=== PATIENT | male | born 1970 | race Hispanic/Latino ===

== ENCOUNTER 2017-01-22 02:01 | Emergency (ER) | payer BC ==
--- NOTE | 2017-01-22 08:04 | Emergency Department Report ---
Eye Injury/Foreign Body - HPI Duration: 1 Day Eye Location: Right Severity: Mild Tetanus Status: Up to Date Eye Symptoms: Eye Pain: No, Blurred Vision: No, Eye Redness: Yes, Grinding/ Hammering Metal: No, Used Eye Protection: No, Contact Lens Use: No, Recalls Injury: No, Photophobia: No Other History: Patient is a 46-year-old healthy male with no prior medical history, states he was at work yesterday around 1 PM when he noticed a redness in his right eye. Patient states he wasn't doing anything when he noticed it. Patient denies any trauma, recent eye injury, contact lens use, he denies eye pain, eye itchiness or loss of vision ED Review of Systems ROS: Stated complaint: EYE PAIN Other details as noted in HPI Constitutional: denies: chills, fever Eyes: denies: eye pain, eye discharge, vision change ENT: denies: ear pain, throat pain Respiratory: denies: cough, shortness of breath, wheezing Cardiovascular: denies: chest pain, palpitations Endocrine: no symptoms reported Gastrointestinal: denies: abdominal pain, nausea, diarrhea Genitourinary: denies: urgency, dysuria Musculoskeletal: denies: back pain, joint swelling, arthralgia Skin: denies: rash, lesions Neurological: denies: headache, weakness, paresthesias Psychiatric: denies: anxiety, depression Hematological/Lymphatic: denies: easy bleeding, easy bruising ED Past Medical Hx - Past Medical History Previous Medical History?: No Hx Diabetes: No - Surgical History Additional Surgical History: testicle surgery(child)- - Social History Smoking Status: Never Smoker Substance Use Type: None - Medications Home Medications: Home Medications Medication Instructions Recorded Confirmed Last Taken Type Tetrahydrz/Dext 70/Peg 400/Pvp 1 drop OP BID #15 ml 01/22/17 Unknown Rx [Eye Drops] Eye Injury Exam - Exam General: Vital signs noted. No distress. Alert and acting appropriately. GENERAL: Alert and oriented x3, no apparent distress, Normal Gait, atraumatic. HEAD: Head is normocephalic and a-traumatic. EYES: Extra ocular muscles are intact. Pupils are equal, round, and reactive to light and accommodation. Sclerae are clear and erythematous bilaterally. Right eye subconjunctival hematoma palpable 5 cm to the right of the pupil, mild consistency. Nontender to palpation of the eyes bilaterally, no tearing, itching. Vision is intact HEART: S1, S2 present, regular rate and rhythm without murmur, no rubs, no gallops. Non tender to palpation ED Course Vital Signs 01/22/17 02:25 Temperature 98.3 F Pulse Rate 80 Respiratory 18 Rate Blood Pressure 132/89 O2 Sat by Pulse 97 Oximetry ED Medical Decision Making - Medical Decision Making 46-year-old male presents with right symptoms conjunctival hematoma ED course: Patient had an uneventful ED stay Discussed with patient that the hematoma will resolve spontaneously. Discussed patient not to rub his eyes vigorously Vital signs are normal patient is in no acute distress easily oriented 3 Critical care attestation.: If time is entered above; I have spent that time in minutes in the direct care of this critically ill patient, excluding procedure time. ED Disposition Clinical Impression: Subconjunctival hemorrhage, non-traumatic Qualifiers: Laterality: right Qualified Code(s): H11.31 - Conjunctival hemorrhage, right eye Disposition: - TO HOME OR SELFCARE Is pt being admited?: No Does the pt Need Aspirin: No Condition: Stable Instructions: Subconjunctival Hemorrhage (ED) Prescriptions: Tetrahydrz/Dext 70/Peg 400/Pvp [Eye Drops] 1 drop OP BID #15 ml Referrals: PRIMARY CAREMD [Primary Care Provider] - 3-5 Days KVNG JASMINE MD [Staff Physician] - 3-5 Days Forms: Work/School Release Form(ED) Time of Disposition: 08:07
[2017-01-22 08:21] VITALS: BP 140/90
== END 2017-01-22 08:20 | disposition home or self-care (01) ==
LOC: ED 02:01
DX: H11.31 Conjunctival hemorrhage, right eye (principal)
CPT/HCPCS: 99282

== ENCOUNTER 2020-08-29 19:01 | Inpatient (IN) | payer BC ==
--- NOTE | 2020-08-29 21:06 | Emergency Department Report ---
ED General Adult HPI - General Chief complaint: Medical Clearance Stated complaint: My blood pressure was low and I had a fever PUI?: Yes Time Seen by Provider: 08/29/20 21:04 Source: patient, RN notes reviewed Mode of arrival: Ambulatory Limitations: No Limitations - History of Present Illness Initial comments: The patient was evaluated in the emergency department for symptoms described in the history of present illness. He/she was evaluated in the context of the global COVID-19 pandemic, which necessitated consideration that the patient might be at risk for infection with the virus that causes COVID-19. Institutional protocols and algorithms that pertain to the evaluation of patients at risk for COVID-19 are in a state of rapid change based on information released by regulatory bodies including the CDC and federal and state organizations. These policies and algorithms were followed during the patient's care in the emergency department. Please note that these policies, procedures and recommendations changed on a rapid basis. During entire history and physical examination, I had a complete personal protective equipment. The patient is a 50-year-old gentleman. He is not known to myself previously. He does not have a local primary care doctor. He occasionally presents to local urgent care centers for outpatient medical treatment. He reports a history of hypertension, and takes a blood pressure medication, but not cannot recall the name of his blood pressure medication. The patient presents to the ER today with a primary complaint of "my blood pressure was low", and he reportedly had a fever at work, 100 degrees, 101 degrees, and was "sent here to get checked for Covid." The patient reports that he has at home blood pressure machine, he typically checks his values, and 1 of these values today was 99/88 mmHg. It was an isolated reading, additional readings were in the 120s, 117 systolic. The patient denies headache, neck pain, abdominal pain, hematemesis, bright red blood per rectum. He reports intermittent substernal burning feeling, after eating pizza, which has been happening intermittently over the past few weeks. He denies vomiting, diaphoresis, shortness of breath, and his burning feeling did not radiate to the back, arms or neck. The patient denies DVT and pulmonary embolism risk factors. The patient did not know he had a fever today, and he denies all Covid symptoms, including diarrhea, body aches, loss of taste and smell. He has no interest in getting a COVID-19 vaccination. He does reports family history of ischemic heart disease, including his brother, who of a myocardial infarction. He does not use recreational drugs, but occasionally consume/smoke cigarettes. He has chronic lower extremity swelling, which is basically at baseline, and he reports negative outpatient DVT studies. He also endorses chronic arthritic pain. -: This morning Location: chest (Epigastric chest pain), lower extremity (Right lower extremity arthritic pain) Radiation: non-radiation Quality: burning Consistency: intermittent Improves with: none Worsens with: none - Related Data Home Medications Medication Instructions Recorded Confirmed Last Taken Irbesartan [Avapro] 75 mg PO QDAY 08/29/20 08/29/20 08/29/20 10:00 Allergies Allergy/AdvReac Type Severity Reaction Status Date / Time lisinopril Allergy Unknown Verified 08/29/20 20:43 ED Review of Systems ROS: Stated complaint: LBP Other details as noted in HPI Constitutional: fever, other (Denies loss of taste and smell). denies: diaphoresis, malaise, weakness Eyes: denies: eye discharge Respiratory: denies: cough, shortness of breath Cardiovascular: other (Chest burning) Gastrointestinal: abdominal pain (Epigastric burning). denies: nausea, hematemesis, melena, hematochezia Genitourinary: denies: dysuria Musculoskeletal: arthralgia, myalgia Neurological: denies: headache Hematological/Lymphatic: denies: easy bleeding ED Past Medical Hx - Past Medical History Previous Medical History?: Yes Hx Hypertension: Yes Hx Diabetes: No Additional medical history: varicose veins - Surgical History Additional Surgical History: testicle surgery(child)- - Social History Smoking Status: Never Smoker Substance Use Type: None - Medications Home Medications: Home Medications Medication Instructions Recorded Confirmed Last Taken Type Irbesartan [Avapro] 75 mg PO QDAY 08/29/20 08/29/20 08/29/20 10:00 History ED Physical Exam - General Limitations: No Limitations General appearance: alert, in no apparent distress - Head Head exam: Present: atraumatic, normocephalic - Eye Eye exam: Present: normal appearance, EOMI. Absent: nystagmus - ENT ENT exam: Present: normal exam, normal orophraynx, mucous membranes moist, normal external ear exam - Neck Neck exam: Present: normal inspection, full ROM. Absent: tenderness, meningismus - Respiratory Respiratory exam: Present: other (Pulmonary auscultation not performed secondary to lack of disposable stethoscope). Absent: respiratory distress, stridor - Cardiovascular Cardiovascular Exam: Present: other (Cardiac auscultation not performed secondary to lack of disposable stethoscope) - GI/Abdominal GI/Abdominal exam: Present: soft. Absent: distended, tenderness, guarding, rebound, rigid, pulsatile mass - Rectal Rectal exam: Present: deferred - Extremities Exam Extremities exam: Present: normal inspection, full ROM, pedal edema (1+ edema bilateral lower extremities.), other (2+ pulses noted in the bilateral upper and lower extremities. There is no palpable cord. negative Homans sign. Muscular compartments are soft. The pelvis is stable.). Absent: calf tenderness - Back Exam Back exam: Present: normal inspection. Absent: tenderness, CVA tenderness (R), CVA tenderness (L), paraspinal tenderness, vertebral tenderness - Neurological Exam Neurological exam: Present: alert, other (No facial droop. Tongue midline. Extraocular movements intact bilaterally. Facial sensation intact to light touch in V1, V2, V3 distribution bilaterally. 5 and a 5 strength in 4 extremities. Sensation intact to light touch in 4 extremities.). Absent: motor sensory deficit - Psychiatric Psychiatric exam: Present: normal affect, normal mood - Skin Skin exam: Present: warm, dry, intact, normal color. Absent: rash ED Course Vital Signs 08/29/20 08/29/20 08/29/20 20:37 21:07 21:10 Temperature 98.1 F 97.9 F Pulse Rate 65 132 H 138 H Respiratory 20 18 17 Rate Blood Pressure 100/75 Blood Pressure 109/83 [Right] O2 Sat by Pulse 98 100 Oximetry O2 Sat by Pulse Oximetry [ Digit-Finger] 08/29/20 08/29/20 08/29/20 21:30 21:47 22:00 Temperature Pulse Rate 129 H 138 H 93 H Respiratory 21 11 L Rate Blood Pressure 127/81 113/80 113/80 Blood Pressure [Right] O2 Sat by Pulse 99 97 Oximetry O2 Sat by Pulse Oximetry [ Digit-Finger] 08/29/20 08/29/20 08/29/20 22:30 22:45 22:53 Temperature Pulse Rate 126 H 125 H Respiratory 16 Rate Blood Pressure 103/73 112/73 Blood Pressure [Right] O2 Sat by Pulse 97 Oximetry O2 Sat by Pulse 99 Oximetry [ Digit-Finger] 08/29/20 23:00 Temperature Pulse Rate 80 Respiratory 12 Rate Blood Pressure 112/73 Blood Pressure [Right] O2 Sat by Pulse 97 Oximetry O2 Sat by Pulse Oximetry [ Digit-Finger] - Reevaluation(s) Reevaluation #1: 08/29/20 22:00 Differential diagnosis, including but not limited to: COVID-19, pneumonia, urinary tract infection, A. fib with RVR, electrolyte derangement, acute coronary syndrome Assessment and plan: 50-year-old gentleman, found to be in A. fib with RVR, patient as far she knows does not have a history of A. fib with RVR. He has had a fever today, but is otherwise asymptomatic, and denies additional Covid symptomatology, and he is saturating 99% on room air. From a COVID-19 perspective, place patient on isolation, obtain appropriate laboratory studies and biomarkers, x-ray the chest, blood culture and lactic acid. Patient not hypoxic at this time not symptomatic at this time, does not require steroids at this time. Found to be in A. fib with RVR. Start diltiazem IV push x1, reassess. Check appropriate laboratory studies, EKG, chest x-ray, discussed with cardiology on- call, once additional laboratory studies have come back, initiate systemic anticoagulation. Patient denies contraindications to systemic anticoagulation. Patient denies DVT and pulmonary embolism risk factors. Patient also endorsed burning chest discomfort. Treat as needed, obtain cardiac biomarkers. Have discussed this plan of care with the patient, who verbalized understanding, and was amenable to this plan of care. Patient is certainly amenable to admission at this time. 08/29/20 22:02 Reevaluation #2: 08/29/20 22:22 Heart rate in the 90s after diltiazem. Patient speaking on cell phone. He is in no acute distress. Reevaluation #3: 08/29/20 22:52 Heart rate 80s to 124. Additional diltiazem ordered. Evaluated laboratory studies and radiology studies. Lovenox ordered. Extensive discussion held with patient regarding studies. Patient initially ambivalent about being admitted, as he has pet obligations at home. However, after exten sive discussion, he tells me that he is now okay with being admitted. Hospital physician, Dr. Jesus Trevino to admit Reevaluation #4: 08/29/20 23:12 Repeat EKG shows A. fib, 75 bpm, QTC prolonged, left ventricular hypertrophy, not a STEMI. - Consultations Consultation #1: 08/29/20 22:03 I discussed the patient's history, physical, pertinent findings with cardiology on-call, Dr. Godoy, who agrees with plan of care, and his group will follow closely in consultation. - Pulse Oximetry Interpretation Digit-Finger Initial Pulse Oximetry Readin O2 Sat by Pulse Oximetry: 99 Actions Taken: none ED Medical Decision Making - Lab Data Result diagrams: 08/29/20 21:49 08/29/20 21:49 Vital Signs 08/29/20 08/29/20 08/29/20 20:37 21:10 21:47 Temperature 98.1 F 97.9 F Pulse Rate 65 138 H 138 H Respiratory 20 17 Rate Blood Pressure 100/75 113/80 Blood Pressure 109/83 [Right] O2 Sat by Pulse 98 100 Oximetry O2 Sat by Pulse Oximetry [ Digit-Finger] 08/29/20 22:00 Temperature Pulse Rate Respiratory Rate Blood Pressure Blood Pressure [Right] O2 Sat by Pulse Oximetry O2 Sat by Pulse 99 Oximetry [ Digit-Finger] Lab Results 08/29/20 08/29/20 08/29/20 Range/Units 21:49 21:49 21:49 WBC 8.5 (4.5-11.0) K/mm3 RBC 4.59 (3.65-5.03) M/mm3 Hgb 14.4 (11.8-15.2) gm/dl Hct 41.5 (35.5-45.6) % MCV 90 (84-94) fl MCH 31 (28-32) pg MCHC 35 H (32-34) % RDW 12.9 L (13.2-15.2) % Plt Count 306 (140-440) K/mm3 Lymph % (Auto) 19.0 (13.4-35.0) % Gem % (Auto) 9.2 H (0.0-7.3) % Eos % (Auto) 2.3 (0.0-4.3) % Baso % (Auto) 1.5 (0.0-1.8) % Lymph # (Auto) 1.6 (1.2-5.4) K/mm3 Gem # (Auto) 0.8 (0.0-0.8) K/mm3 Eos # (Auto) 0.2 (0.0-0.4) K/mm3 Baso # (Auto) 0.1 (0.0-0.1) K/mm3 Seg Neutrophils % 68.0 (40.0-70.0) % Seg Neutrophils # 5.8 (1.8-7.7) K/mm3 PT 12.5 (12.2-14.9) Sec. INR 0.95 (0.87-1.13) APTT 27.1 (24.2-36.6) Sec. D-Dimer 191.60 (0-234) ng/mlDDU Sodium (137-145) mmol/L Potassium (3.6-5.0) mmol/L Chloride (98-107) mmol/L Carbon Dioxide (22-30) mmol/L Anion Gap mmol/L BUN (9-20) mg/dL Creatinine (0.8-1.3) mg/dL Estimated GFR ml/min BUN/Creatinine Ratio % Glucose (75-100) mg/dL Lactic Acid 1.90 (0.7-2.0) mmol/L Calcium (8.4-10.2) mg/dL Magnesium (1.7-2.3) mg/dL Ferritin (30.0-300.0) ng/mL Total Bilirubin (0.1-1.2) mg/dL AST (5-40) units/L ALT (7-56) units/L Alkaline Phosphatase (35-129) units/L Lactate Dehydrogenase (91-180) units/L Troponin T (0.00-0.029) ng/mL C-Reactive Protein (0.00-1.30) mg/dL NT-Pro-B Natriuret Pep (0-900) pg/mL Total Protein (6.3-8.2) g/dL Albumin (3.9-5) g/dL Albumin/Globulin Ratio % TSH (0.270-4.200) mlU/mL 08/29/20 08/29/20 08/29/20 Range/Units 21:49 21:49 21:49 WBC (4.5-11.0) K/mm3 RBC (3.65-5.03) M/mm3 Hgb (11.8-15.2) gm/dl Hct (35.5-45.6) % MCV (84-94) fl MCH (28-32) pg MCHC (32-34) % RDW (13.2-15.2) % Plt Count (140-440) K/mm3 Lymph % (Auto) (13.4-35.0) % Gem % (Auto) (0.0-7.3) % Eos % (Auto) (0.0-4.3) % Baso % (Auto) (0.0-1.8) % Lymph # (Auto) (1.2-5.4) K/mm3 Gem # (Auto) (0.0-0.8) K/mm3 Eos # (Auto) (0.0-0.4) K/mm3 Baso # (Auto) (0.0-0.1) K/mm3 Seg Neutrophils % (40.0-70.0) % Seg Neutrophils # (1.8-7.7) K/mm3 PT (12.2-14.9) Sec. INR (0.87-1.13) APTT (24.2-36.6) Sec. D-Dimer (0-234) ng/mlDDU Sodium 136 L (137-145) mmol/L Potassium 3.9 (3.6-5.0) mmol/L Chloride 103.1 (98-107) mmol/L Carbon Dioxide 22 (22-30) mmol/L Anion Gap 15 mmol/L BUN 8 L (9-20) mg/dL Creatinine 0.7 L (0.8-1.3) mg/dL Estimated GFR > 60 ml/min BUN/Creatinine Ratio 11 % Glucose 111 H (75-100) mg/dL Lactic Acid (0.7-2.0) mmol/L Calcium 8.7 (8.4-10.2) mg/dL Magnesium 2.10 (1.7-2.3) mg/dL Ferritin 142.4 (30.0-300.0) ng/mL Total Bilirubin 0.40 (0.1-1.2) mg/dL AST 15 (5-40) units/L ALT 19 (7-56) units/L Alkaline Phosphatase 84 (35-129) units/L Lactate Dehydrogenase 162 (91-180) units/L Troponin T < 0.010 (0.00-0.029) ng/mL C-Reactive Protein 0.20 (0.00-1.30) mg/dL NT-Pro-B Natriuret Pep (0-900) pg/mL Total Protein 7.2 (6.3-8.2) g/dL Albumin 3.9 (3.9-5) g/dL Albumin/Globulin Ratio 1.2 % TSH 0.774 (0.270-4.200) mlU/mL 08/29/20 Range/Units 21:49 WBC (4.5-11.0) K/mm3 RBC (3.65-5.03) M/mm3 Hgb (11.8-15.2) gm/dl Hct (35.5-45.6) % MCV (84-94) fl MCH (28-32) pg MCHC (32-34) % RDW (13.2-15.2) % Plt Count (140-440) K/mm3 Lymph % (Auto) (13.4-35.0) % Gem % (Auto) (0.0-7.3) % Eos % (Auto) (0.0-4.3) % Baso % (Auto) (0.0-1.8) % Lymph # (Auto) (1.2-5.4) K/mm3 Gem # (Auto) (0.0-0.8) K/mm3 Eos # (Auto) (0.0-0.4) K/mm3 Baso # (Auto) (0.0-0.1) K/mm3 Seg Neutrophils % (40.0-70.0) % Seg Neutrophils # (1.8-7.7) K/mm3 PT (12.2-14.9) Sec. INR (0.87-1.13) APTT (24.2-36.6) Sec. D-Dimer (0-234) ng/mlDDU Sodium (137-145) mmol/L Potassium (3.6-5.0) mmol/L Chloride (98-107) mmol/L Carbon Dioxide (22-30) mmol/L Anion Gap mmol/L BUN (9-20) mg/dL Creatinine (0.8-1.3) mg/dL Estimated GFR ml/min BUN/Creatinine Ratio % Glucose (75-100) mg/dL Lactic Acid (0.7-2.0) mmol/L Calcium (8.4-10.2) mg/dL Magnesium (1.7-2.3) mg/dL Ferritin (30.0-300.0) ng/mL Total Bilirubin (0.1-1.2) mg/dL AST (5-40) units/L ALT (7-56) units/L Alkaline Phosphatase (35-129) units/L Lactate Dehydrogenase (91-180) units/L Troponin T (0.00-0.029) ng/mL C-Reactive Protein (0.00-1.30) mg/dL NT-Pro-B Natriuret Pep 434.7 (0-900) pg/mL Total Protein (6.3-8.2) g/dL Albumin (3.9-5) g/dL Albumin/Globulin Ratio % TSH (0.270-4.200) mlU/mL - EKG Data -: EKG Interpreted by Me Rate: tachycardia - EKG Data 08/29/20 22:02 A. fib, 130 bpm. Normal axis, QTC 461 ms. Left ventricular hypertrophy. Ab normal EKG. Not a STEMI. No prior for comparison. - Radiology Data Radiology results: pending, image reviewed interpreted by me: 1 view x-ray of the chest, interpreted by myself, clear lungs, no pneumothorax, no infiltrate, bony anatomy within normal limits. [facility] [address] [place] [address] XRay Report Signed Patient: GENESIS BLACKMON MR#: [id number] : [birth year] Acct:[id number] Age/Sex: 50 / M ADM Date: 08/29/20 Loc: ED Attending Dr: Ordering Physician: GENESIS OLIVA MD Date of Service: 08/29/20 Procedure(s): XR chest 1V ap Accession Number(s): [id number] cc: GENESIS OLIVA MD Fluoro Time In Minutes: CHEST 1 VIEW 08/29/2020 9:43 PM INDICATION / CLINICAL INFORMATION: Dysrhythmia. Shortness of breath. COMPARISON: None available. FINDINGS: SUPPORT DEVICES: None. HEART / MEDIASTINUM: The heart size and pulmonary vasculature are normal. LUNGS / PLEURA: No significant pulmonary or pleural abnormality. No pneumothorax. ADDITIONAL FINDINGS: No significant additional findings. IMPRESSION: No acute findings. Signer Name: Rudy Mayes MD Signed: 08/29/2020 10:43 PM Workstation Name: [id number] Transcribed By: RT Dictated By: Rudy Mayes MD Electronically Authenticated By: Rudy Mayes MD Signed Date/Time: 08/29/202242 DD/ 42 Critical Care Time: Yes Critical care time in (mins) excluding proc time.: 65 Critical care attestation.: If time is entered above; I have spent that time in minutes in the direct care of this critically ill patient, excluding procedure time. ED Disposition Clinical Impression: Suspected 2019 novel coronavirus infection, Atrial fibrillation with rapid ventricular response Disposition: OP ADMIT IP TO THIS HOSP Is pt being admited?: Yes Does the pt Need Aspirin: No Condition: Serious
[2020-08-29] MEDS ORDERED: ASPIRIN 81 MG TAB CHEW PO ONE (21:40)
[2020-08-29] MEDS ORDERED: dilTIAZem 25 MG/5 ML INJ IV ONE ×2 (21:40→22:40)
[2020-08-29] MEDS ORDERED: NITROGLYCERIN 0.4 MG TAB SUBL SL PRN (21:42)
[2020-08-29] MEDS ORDERED: ACETAMINOPHEN 325 MG TAB PO STA (21:59)
[2020-08-29 22:07] LABS: Basophils # (Auto) 0.1 K/mm3 (0.0-0.1); Basophils % (Auto) 1.5 % (0.0-1.8); Eosinophils # (Auto) 0.2 K/mm3 (0.0-0.4); Eosinophils % (Auto) 2.3 % (0.0-4.3); Hematocrit 41.5 % (35.5-45.6); Hemoglobin 14.4 gm/dl (11.8-15.2); Lymphocytes # (Auto) 1.6 K/mm3 (1.2-5.4); Mean Corpuscular HGB Conc 35 % (32-34); Mean Corpuscular Volume 90 fl (84-94); Monocytes # (Auto) 0.8 K/mm3 (0.0-0.8); Monocytes % (Auto) 9.2 % (0.0-7.3); Platelet Count 306 K/mm3 (140-440); Red Blood Count 4.59 M/mm3 (3.65-5.03); Red Cell Distribution Width 12.9 % (13.2-15.2)
[2020-08-29] MEDS ORDERED: dilTIAZem 30 MG TAB PO ONE (22:10)
[2020-08-29 22:18] LABS: INR 0.95 (0.87-1.13)
[2020-08-29 22:19] LABS: Partial Thromboplastin Time 27.1 Sec. (24.2-36.6)
[2020-08-29 22:38] LABS: Alanine Aminotransferase 19 units/L (7-56); Albumin 3.9 g/dL (3.9-5); Blood Urea Nitrogen 8 mg/dL (9-20); Calcium 8.7 mg/dL (8.4-10.2); Hemolysis Index 20
[2020-08-29] MEDS ORDERED: ENOXAPARIN 100 MG/1 ML INJ SUB-Q STA (22:41)
[2020-08-29 22:42] LABS: BUN/Creatinine Ratio 11
--- NOTE | 2020-08-29 22:48 | XRay Report ---
CHEST 1 VIEW 08/29/2020 9:43 PM INDICATION / CLINICAL INFORMATION: Dysrhythmia. Shortness of breath. COMPARISON: None available. FINDINGS: SUPPORT DEVICES: None. HEART / MEDIASTINUM: The heart size and pulmonary vasculature are normal. LUNGS / PLEURA: No significant pulmonary or pleural abnormality. No pneumothorax. ADDITIONAL FINDINGS: No significant additional findings. IMPRESSION: No acute findings. Signer Name: Rudy Mayes MD Signed: 08/29/2020 10:43 PM Workstation Name: [id number]
--- NOTE | 2020-08-29 23:01 | History and Physical Report ---
History of Present Illness Date of examination: 08/29/20 Date of admission: 08/29/2020 Chief complaint: Fever Elevated Blood Pressure History of present illness: 50-year-old male with significant past medical history of hypertension presents to the emergency room today complaining of fever and abnormally low blood pressure readings. He states he was at work today and had a fever of about 100 to 101 F and was sent to the emergency room to be tested for Covid. Patient denies any cough or shortness of breath, no chest pain, no nausea vomiting, no abdominal pain, no headache or dizziness, no nausea vomiting, no abdominal pain. Patient denies any sick contacts and no recent travel. Denies any contact with anyone with COVID-19. Upon arrival in the emergency room patient was found to be in atrial fibrillation with RVR. He was given multiple doses of IV Cardizem with some good response initially but later went back into A. fib., with RVR and had to be placed on Cardizem drip. Work-up so far in the emergency room including chest x-ray, TSH has been unrem arkable. Patient has been admitted for A. fib with RVR and also to be tested for COVID- 19. Past History Past Medical History: arthritis, hypertension Past Surgical History: Other (Testicular surgery in Childhood) Social history: no significant social history Family history: no significant family history Medications and Allergies Allergies Allergy/AdvReac Type Severity Reaction Status Date / Time lisinopril Allergy Unknown Verified 08/29/20 20:43 Home Medications Medication Instructions Recorded Confirmed Last Taken Type Irbesartan [Avapro] 75 mg PO QDAY 08/29/20 08/29/20 08/29/20 10:00 History Active Meds: Active Medications Nitroglycerin (Nitroglycerin 0.4 Mg Tab Subl) 0.4 mg SL .Q5MIN PRN PRN Reason: Chest Pain Review of Systems Constitutional: fever, no chills Ears, nose, mouth and throat: no nasal congestion, no sore throat Cardiovascular: palpitations, no chest pain Respiratory: no cough, no shortness of breath Genitourinary Male: no dysuria, no hematuria, no nocturia Musculoskeletal: no neck pain, no low back pain Integumentary: no rash, no pruritis Neurological: no headaches, no confusion Psychiatric: no anxiety, no depression, no confusion Endocrine: no polyphagia, no polydipsia, no polyuria, no nocturia Exam - Constitutional Vitals: Temp Pulse Resp BP Pulse Ox 97.9 F 125 H 16 112/73 99 08/29/20 21:10 08/29/20 22:45 08/29/20 22:30 08/29/20 22:45 08/29/20 22:50 General appearance: Present: no acute distress, well-nourished - EENT Eyes: Present: PERRL, EOM intact. Absent: scleral icterus ENT: hearing intact, clear oral mucosa, dentition normal - Neck Neck: Present: supple, normal ROM - Respiratory Respiratory effort: normal Respiratory: bilateral: CTA - Cardiovascular Rhythm: irregularly irregular Heart Sounds: Present: S1 & S2. Absent: gallop, systolic murmur, diastolic murmur, rub, click - Extremities Extremities: no ischemia, pulses intact, pulses symmetrical, No edema, normal temperature, normal color, Full ROM Peripheral Pulses: within normal limits - Abdominal General gastrointestinal: Present: soft, non-tender, non-distended, normal bowel sounds - Integumentary Integumentary: Present: clear, warm, dry. Absent: rash - Musculoskeletal Musculoskeletal: strength equal bilaterally - Psychiatric Psychiatric: appropriate mood/affect, intact judgment & insight, memory intact, cooperative - Neurologic Neurologic: CNII-XII intact, no focal deficits, moves all extremities HEART Score - HEART Score Troponin: Troponin T < 0.010 ng/mL (0.00-0.029) 08/29/20 21:49 Results - Labs CBC & Chem 7: 08/31/20 05:02 08/31/20 05:02 Labs: Abnormal lab results 08/29/20 08/29/20 Range/Units 21:49 21:49 MCHC 35 H (32-34) % RDW 12.9 L (13.2-15.2) % [place] % (Auto) 9.2 H (0.0-7.3) % Sodium 136 L (137-145) mmol/L BUN 8 L (9-20) mg/dL Creatinine 0.7 L (0.8-1.3) mg/dL Glucose 111 H (75-100) mg/dL Assessment and Plan - Patient Problems (1) Atrial fibrillation with rapid ventricular response Current Visit: Yes Status: Acute Plan to address problem: Patient admitted and initially placed on Cardizem drip and subsequently switched to amiodarone drip. Will titrate according to protocol. Patient will be scheduled for echocardiogram. Consult placed to cardiology for evaluation and recommendation. (2) Suspected 2019 novel coronavirus infection Current Visit: Yes Status: Acute Plan to address problem: Patient placed on isolation precautions. Will await COVID-19 testing. (3) Hypertension Current Visit: Yes Status: Acute Plan to address problem: Blood pressure stable. Will continue to monitor. (4) DVT prophylaxis Current Visit: Yes Status: Acute Plan to address problem: We will place patient on subcutaneous Lovenox. (5) Full code status Current Visit: Yes Status: Acute Plan to address problem: Patient is a full code.
[2020-08-30] MEDS ORDERED: ONDANSETRON 4 MG/2 ML INJ IV PRN (00:05)
[2020-08-30] MEDS ORDERED: MAGNESIUM HYDROXIDE (MOM) ORAL LIQD UDC PO PRN (00:05)
[2020-08-30] MEDS ORDERED: MORPHINE 2 MG/1 ML INJ IV PRN (00:05)
[2020-08-30] MEDS ORDERED: ACETAMINOPHEN 325 MG TAB PO PRN (00:05)
[2020-08-30 00:08] LABS: Amphetamine Screen,Urine PRESUMPTIVE NEGATIVE; Benzodiazepines Screen,Urine PRESUMPTIVE NEGATIVE; Cannabinoid Screen,Urine PRESUMPTIVE NEGATIVE; Cocaine Screen,Urine PRESUMPTIVE NEGATIVE; Methadone Screen,Urine PRESUMPTIVE NEGATIVE; Opiate Screen,Urine PRESUMPTIVE NEGATIVE
[2020-08-30] MEDS ORDERED: dilTIAZem/D5W 100 MG/100 ML BAG IV SCH (02:00)
[2020-08-30] MEDS ORDERED: AMIODARONE 900 MG in DEXTROSE 5% IN WATER 482 ML IV SCH (06:00)
--- NOTE | 2020-08-30 10:04 | Progress Note ---
Assessment and Plan Assessment and plan: Atrial fibrillation with rapid ventricular response. New onset Suspected COVID-19. Hypertension. 08/30. Patient with troponin, TSH and D-dimer within normal limits. Await cardiology consultation. Continue amiodarone drip for now for rate control. Patient will be likely transition to p.o. amiodarone. Follow-up echocardiogram. Follow-up Covid PCR. Patient will be downgraded to IMCU. History Interval history: No new issues overnight Hospitalist Physical - Constitutional Vitals: Temp Pulse Resp BP Pulse Ox 97.9 F 77 21 127/89 98 08/29/20 21:10 08/30/20 09:30 08/30/20 09:30 08/30/20 09:30 08/30/20 09:30 General appearance: Present: no acute distress, well-nourished - EENT Eyes: Present: PERRL, EOM intact ENT: hearing intact, clear oral mucosa, dentition normal - Neck Neck: Present: supple, normal ROM - Respiratory Respiratory effort: normal Respiratory: bilateral: CTA - Cardiovascular Rhythm: regular Heart Sounds: Present: S1 & S2. Absent: gallop, rub - Extremities Extremities: no ischemia, No edema, Full ROM - Abdominal General gastrointestinal: soft, non-tender, non-distended, normal bowel sounds - Integumentary Integumentary: Present: clear, warm, dry - Neurologic Neurologic: CNII-XII intact, moves all extremities HEART Score - HEART Score Troponin: Troponin T < 0.010 ng/mL (0.00-0.029) 08/30/20 05:47 Results - Labs CBC & Chem 7: 08/29/20 21:49 08/29/20 21:49 Labs: Laboratory Last Values WBC 8.5 K/mm3 (4.5-11.0) 08/29/20 21:49 RBC 4.59 M/mm3 (3.65-5.03) 08/29/20 21:49 Hgb 14.4 gm/dl (11.8-15.2) 08/29/20 21:49 Hct 41.5 % (35.5-45.6) 08/29/20 21:49 MCV 90 fl (84-94) 08/29/20 21:49 MCH 31 pg (28-32) 08/29/20 21:49 MCHC 35 % (32-34) H 08/29/20 21:49 RDW 12.9 % (13.2-15.2) L 08/29/20 21:49 Plt Count 306 K/mm3 (140-440) 08/29/20 21:49 Lymph % (Auto) 19.0 % (13.4-35.0) 08/29/20 21:49 [place] % (Auto) 9.2 % (0.0-7.3) H 08/29/20 21:49 Eos % (Auto) 2.3 % (0.0-4.3) 08/29/20 21:49 Baso % (Auto) 1.5 % (0.0-1.8) 08/29/20 21:49 Lymph # (Auto) 1.6 K/mm3 (1.2-5.4) 08/29/20 21:49 [place] # (Auto) 0.8 K/mm3 (0.0-0.8) 08/29/20 21:49 Eos # (Auto) 0.2 K/mm3 (0.0-0.4) 08/29/20 21:49 Baso # (Auto) 0.1 K/mm3 (0.0-0.1) 08/29/20 21:49 Seg Neutrophils % 68.0 % (40.0-70.0) 08/29/20 21:49 Seg Neutrophils # 5.8 K/mm3 (1.8-7.7) 08/29/20 21:49 PT 12.5 Sec. (12.2-14.9) 08/29/20 21:49 INR 0.95 (0.87-1.13) 08/29/20 21:49 APTT 27.1 Sec. (24.2-36.6) 08/29/20 21:49 D-Dimer 191.60 ng/mlDDU (0-234) 08/29/20 21:49 Sodium 136 mmol/L (137-145) L 08/29/20 21:49 Potassium 3.9 mmol/L (3.6-5.0) 08/29/20 21:49 Chloride 103.1 mmol/L (98-107) 08/29/20 21:49 Carbon Dioxide 22 mmol/L (22-30) 08/29/20 21:49 Anion Gap 15 mmol/L 08/29/20 21:49 BUN 8 mg/dL (9-20) L 08/29/20 21:49 Creatinine 0.7 mg/dL (0.8-1.3) L 08/29/20 21:49 Estimated GFR > 60 ml/min 08/29/20 21:49 BUN/Creatinine Ratio 11 % 08/29/20 21:49 Glucose 111 mg/dL (75-100) H 08/29/20 21:49 Lactic Acid 1.90 mmol/L (0.7-2.0) 08/29/20 21:49 Calcium 8.7 mg/dL (8.4-10.2) 08/29/20 21:49 Phosphorus 2.90 mg/dL (2.5-4.5) 08/30/20 08:40 Magnesium 2.10 mg/dL (1.7-2.3) 08/29/20 21:49 Ferritin 142.4 ng/mL (30.0-300.0) 08/29/20 21:49 Total Bilirubin 0.40 mg/dL (0.1-1.2) 08/29/20 21:49 AST 15 units/L (5-40) 08/29/20 21:49 ALT 19 units/L (7-56) 08/29/20 21:49 Alkaline Phosphatase 84 units/L (35-129) 08/29/20 21:49 Lactate Dehydrogenase 162 units/L (91-180) 08/29/20 21:49 Troponin T < 0.010 ng/mL (0.00-0.029) 08/30/20 05:47 C-Reactive Protein 0.20 mg/dL (0.00-1.30) 08/29/20 21:49 NT-Pro-B Natriuret Pep 434.7 pg/mL (0-900) 08/29/20 21:49 Total Protein 7.2 g/dL (6.3-8.2) 08/29/20 21:49 Albumin 3.9 g/dL (3.9-5) 08/29/20 21:49 Albumin/Globulin Ratio 1.2 % 08/29/20 21:49 TSH 0.774 mlU/mL (0.270-4.200) 08/29/20 21:49 Urine Opiates Screen Presumptive negative 08/29/20 23:38 Urine Methadone Screen Presumptive negative 08/29/20 23:38 Ur Barbiturates Screen Presumptive negative 08/29/20 23:38 Ur Phencyclidine Scrn Presumptive negative 08/29/20 23:38 Ur Amphetamines Screen Presumptive negative 08/29/20 23:38 U Benzodiazepines Scrn Presumptive negative 08/29/20 23:38 Urine Cocaine Screen Presumptive negative 08/29/20 23:38 U Marijuana (THC) Screen Presumptive negative 08/29/20 23:38 Drugs of Abuse Note Disclamer 08/29/20 23:38 Microbiology: Microbiology 08/29/20 21:59 Peripheral/Venous Blood Culture - Preliminary Culture in Progress 08/29/20 21:49 Peripheral/Venous Blood Culture - Preliminary Culture in Progress Active Medications - Current Medications Current Medications: Generic Name Dose Route Start Last Admin Trade Name Freq PRN Reason Stop Dose Admin Acetaminophen 650 mg 08/30/20 00:05 Acetaminophen 325 Mg Tab PO Q4H PRN Pain MILD(1-3)/Fever >100.5/RUSSELL Amiodarone HCl 900 mg/ 500 mls @ 33.333 mls/hr 08/30/20 06:00 08/30/20 05:50 Dextrose IV 1 mg/min DIRECT PAPA 33.333 mls/hr Administration Protocol 1 MG/MIN Magnesium Hydroxide 30 ml 08/30/20 00:05 Magnesium Hydroxide (Mom) Oral Liqd Udc PO Q4H PRN Constipation Morphine Sulfate 2 mg 08/30/20 00:05 Morphine 2 Mg/1 Ml Inj IV Q4H PRN Pain, Moderate (4-6) Nitroglycerin 0.4 mg 08/29/20 21:42 Nitroglycerin 0.4 Mg Tab Subl SL .Q5MIN PRN Chest Pain Ondansetron HCl 4 mg 08/30/20 00:05 Ondansetron 4 Mg/2 Ml Inj IV Q8H PRN Nausea And Vomiting Sodium Chloride 10 ml 08/30/20 10:00 Sodium Chloride 0.9% 10 Ml Flush Syringe IV BID PAPA Sodium Chloride 10 ml 08/30/20 00:05 Sodium Chloride 0.9% 10 Ml Flush Syringe IV PRN PRN LINE FLUSH
--- NOTE | 2020-08-30 12:33 | Consultation ---
History of Present Illness Consult date: 08/30/20 Requesting physician: YESI TAYLOR Reason for consult: other (A-Fib with RVR) History of present illness: PULMONARY/CCM CONSULT NOTE (Full dictation # [id number]) Please see dictated notes for full details Past History Past Medical History: arthritis, hypertension Past Surgical History: Other (Testicular surgery in Childhood) Social history: no significant social history Family history: no significant family history Medications and Allergies Allergies Allergy/AdvReac Type Severity Reaction Status Date / Time lisinopril Allergy Unknown Verified 08/29/20 20:43 Home Medications Medication Instructions Recorded Confirmed Last Taken Type Irbesartan [Avapro] 75 mg PO QDAY 08/29/20 08/29/20 08/29/20 10:00 History Active Meds: Active Medications Acetaminophen (Acetaminophen 325 Mg Tab) 650 mg PO Q4H PRN PRN Reason: Pain MILD(1-3)/Fever >100.5/RUSSELL Amiodarone HCl 900 mg/ (Dextrose) 500 mls @ 33.333 mls/hr IV DIRECT PAPA; Protocol Last Infusion: 08/30/20 11:56 Dose: 0.5 mg/min, 16.667 mls/hr Documented by: Magnesium Hydroxide (Magnesium Hydroxide (Mom) Oral Liqd Udc) 30 ml PO Q4H PRN PRN Reason: Constipation Morphine Sulfate (Morphine 2 Mg/1 Ml Inj) 2 mg IV Q4H PRN PRN Reason: Pain, Moderate (4-6) Nitroglycerin (Nitroglycerin 0.4 Mg Tab Subl) 0.4 mg SL .Q5MIN PRN PRN Reason: Chest Pain Ondansetron HCl (Ondansetron 4 Mg/2 Ml Inj) 4 mg IV Q8H PRN PRN Reason: Nausea And Vomiting Sodium Chloride (Sodium Chloride 0.9% 10 Ml Flush Syringe) 10 ml IV BID PAPA Last Admin: 08/30/20 12:04 Dose: 10 ml Documented by: Sodium Chloride (Sodium Chloride 0.9% 10 Ml Flush Syringe) 10 ml IV PRN PRN PRN Reason: LINE FLUSH Physical Examination Vital signs: Vital Signs Temp Pulse Resp BP Pulse Ox 98.1 F 65 20 100/75 98 08/29/20 20:37 08/29/20 20:37 08/29/20 20:37 08/29/20 20:37 08/29/20 20:37 Results - Laboratory Findings CBC and BMP: 08/29/20 21:49 08/29/20 21:49 PT/INR, D-dimer PT 12.5 Sec. (12.2-14.9) 08/29/20 21:49 INR 0.95 (0.87-1.13) 08/29/20 21:49 D-Dimer 191.60 ng/mlDDU (0-234) 08/29/20 21:49 Abnormal lab findings: Abnormal Labs 08/29/20 08/29/20 21:49 21:49 MCHC 35 H RDW 12.9 L [place] % (Auto) 9.2 H Sodium 136 L BUN 8 L Creatinine 0.7 L Glucose 111 H
--- NOTE | 2020-08-30 13:57 | Consultation ---
History of Present Illness Consult date: 08/30/20 Consult reason: atrial fibrillation History of present illness: Patient is a 50-year old male with a history of hypertension and takes Irbesartan for management but does not follow routinely with a PCP. No prior cardiac history. He presents to the emergency department with dizziness and palpitations, found with rapid atrial fibrillation, rate 126. Cardiology consultation was requested. Currently, he is on intravenous amiodarone. He has since reverted to normal sinus rhythm. He denies chest pain, denies unusual shortness of breath and den ies syncope. Chest x-ray reports no acute findings. TSH and magnesium levels were normal. Past History Past Medical History: arthritis, hypertension Past Surgical History: Other (Testicular surgery in Childhood) Social history: no significant social history Family history: no significant family history Medications and Allergies Allergies Allergy/AdvReac Type Severity Reaction Status Date / Time lisinopril Allergy Unknown Verified 08/29/20 20:43 Home Medications Medication Instructions Recorded Confirmed Last Taken Type Irbesartan [Avapro] 75 mg PO QDAY 08/29/20 08/29/20 08/29/20 10:00 History Active Meds: Active Medications Acetaminophen (Acetaminophen 325 Mg Tab) 650 mg PO Q4H PRN PRN Reason: Pain MILD(1-3)/Fever >100.5/RUSSELL Amiodarone HCl 900 mg/ (Dextrose) 500 mls @ 33.333 mls/hr IV DIRECT PAPA; Protocol Last Infusion: 08/30/20 11:56 Dose: 0.5 mg/min, 16.667 mls/hr Documented by: Magnesium Hydroxide (Magnesium Hydroxide (Mom) Oral Liqd Udc) 30 ml PO Q4H PRN PRN Reason: Constipation Morphine Sulfate (Morphine 2 Mg/1 Ml Inj) 2 mg IV Q4H PRN PRN Reason: Pain, Moderate (4-6) Nitroglycerin (Nitroglycerin 0.4 Mg Tab Subl) 0.4 mg SL .Q5MIN PRN PRN Reason: Chest Pain Ondansetron HCl (Ondansetron 4 Mg/2 Ml Inj) 4 mg IV Q8H PRN PRN Reason: Nausea And Vomiting Sodium Chloride (Sodium Chloride 0.9% 10 Ml Flush Syringe) 10 ml IV BID PAPA Last Admin: 08/30/20 12:04 Dose: 10 ml Documented by: Sodium Chloride (Sodium Chloride 0.9% 10 Ml Flush Syringe) 10 ml IV PRN PRN PRN Reason: LINE FLUSH Review of Systems Cardiovascular: no chest pain, no edema, no syncope, no shortness of breath Physical Examination Vital Signs Temp Pulse Resp BP Pulse Ox 98.1 F 65 20 100/75 98 08/29/20 20:37 08/29/20 20:37 08/29/20 20:37 08/29/20 20:37 08/29/20 20:37 Narrative exam: Deferred due to isolation protocol. General appearance: no acute distress Cardiac: Positive: Reg Rate and Rhythm Results 08/29/20 21:49 08/29/20 21:49 Cardiac Enzymes 08/29/20 Range/Units 21:49 AST 15 (5-40) units/L Lactate Dehydrogenase 162 (91-180) units/L Coagulation 08/29/20 Range/Units 21:49 PT 12.5 (12.2-14.9) Sec. INR 0.95 (0.87-1.13) APTT 27.1 (24.2-36.6) Sec. CBC 08/29/20 Range/Units 21:49 WBC 8.5 (4.5-11.0) K/mm3 RBC 4.59 (3.65-5.03) M/mm3 Hgb 14.4 (11.8-15.2) gm/dl Hct 41.5 (35.5-45.6) % Plt Count 306 (140-440) K/mm3 Lymph # (Auto) 1.6 (1.2-5.4) K/mm3 [place] # (Auto) 0.8 (0.0-0.8) K/mm3 Eos # (Auto) 0.2 (0.0-0.4) K/mm3 Baso # (Auto) 0.1 (0.0-0.1) K/mm3 Comprehensive Metabolic Panel 08/29/20 Range/Units 21:49 Sodium 136 L (137-145) mmol/L Potassium 3.9 (3.6-5.0) mmol/L Chloride 103.1 (98-107) mmol/L Carbon Dioxide 22 (22-30) mmol/L BUN 8 L (9-20) mg/dL Creatinine 0.7 L (0.8-1.3) mg/dL Glucose 111 H (75-100) mg/dL Calcium 8.7 (8.4-10.2) mg/dL AST 15 (5-40) units/L ALT 19 (7-56) units/L Alkaline Phosphatase 84 (35-129) units/L Total Protein 7.2 (6.3-8.2) g/dL Albumin 3.9 (3.9-5) g/dL Assessment and Plan - Patient Problems (1) Atrial fibrillation with rapid ventricular response Current Visit: Yes Status: Acute Plan to address problem: He is on intravenous amiodarone and has since converted to normal sinus rhythm. TSH and magnesium levels were normal. Recommendation: Transition intravenous amiodarone to oral form. Currently, he is on isolation protocol. After COVID evaluation, will order an echocardiogram for left ventricular function assessment. Further cardiac evaluation depends on clinical course.
[2020-08-30] MEDS: AMIODARONE 200 MG TAB PO SCH (16:45)
--- NOTE | 2020-08-31 03:31 | Consultation ---
DATE OF CONSULTATION: 08/30/2020 PULMONARY CRITICAL CARE CONSULTATION CONSULTING PHYSICIAN: Dr. Trevino. REASON FOR CONSULTATION: Atrial fibrillation with a rapid ventricular response. CHIEF COMPLAINT AND HISTORY OF PRESENT ILLNESS: The patient is a now 50-year-old male with past medical history significant to the records on the patient for a diagnosis of hypertension and also denies any known history of an irregular heartbeat, came into the emergency room secondary to low blood pressures. He stated that he was at work when he was found to have a fever of about 101 degrees Fahrenheit. He was sent to the ER to be tested for COVID. He had denied shortness of breath, chest pains, nausea, vomiting, or loss of taste or smell. Also denied any contact with known patient's with COVID-19 infection and denied any recent long distance travel or any sick contacts. In the emergency room, he was found to be in atrial fibrillation with rapid ventricular response, required multiple doses of IV Cardizem and ultimately was placed on a Cardizem drip and intensive care unit admission was requested. When I stopped by to see him, he was doing better. Cardizem had been stopped. The rate was controlled. He was then on amiodarone drip at 0.5 mcg per minute. He denies a history of tobacco use or abuse whatsoever. This really is as much of the history of presentation as I have. PAST MEDICAL HISTORY: Arthritis, hypertension. PAST SURGICAL HISTORY: He had testicular surgery in childhood. MEDICATIONS: He was on at the time I stopped by to see him, according to the medication administration record included the following: Tylenol 650 mg p.o. q. 4 hours p.r.n. mild pain or fevers. Amiodarone drip was given at 0.5 mg per minute, morphine sulfate 2 mg IV q. 4 hours p.r.n. moderate pain, Zofran 4 mg IV q. 8 hours p.r.n. nausea and vomiting. ALLERGIES: LISINOPRIL, NATURE OF THIS ALLERGY IS UNKNOWN. DIET: A well-built gentleman. Denies acute weight loss or gain in the preceding few weeks to months. SOCIAL HISTORY: Lives in the community. Denies alcohol, tobacco or illicit drug use or abuse. FAMILY HISTORY: Otherwise, noncontributory. REVIEW OF SYSTEMS: No loss of consciousness. No new onset seizures. No new onset focal weakness. Denies gross hematochezia or melena. Denies gross hematuria or dysuria. No hematemesis. No hemoptysis. Denied palpitations. Denies heat or cold intolerance, polydipsia, polyuria. Complete ten system review of system was obtained. Pertinent positives and negatives as in body of history above, otherwise noncontributory. PHYSICAL EXAMINATION: VITAL SIGNS: At presentation in the emergency room, temperature was 98.1, pulse 132, respiratory rate was 18, blood pressure 100/75, O2 sats were 98%, inspired oxygen concentration at the time was not recorded. When I stopped by to see him, O2 sats were 99% on room air. GENERAL: A middle-aged, well-built male. Normocephalic, atraumatic. Talking to me in full sentences without increased respiratory effort at rest. HEENT: Anicteric. No conjunctival erythema. Oropharynx was moist. NECK: No jugular venous distention, no thyromegaly. Grossly, there were no palpable lymph nodes in the supraclavicular or submandibular lymph node chains. Auscultation of both lung cline unremarkable. LUNGS: Good bilateral air movement. HEART: Sounds 1 and 2 were heard at the time of my evaluation, regular in rate and rhythm without rubs or murmurs. ABDOMEN: Soft, flat, bowel sounds are positive, nontender. No palpable hepatosplenomegaly. EXTREMITIES: Without overt digital clubbing, no cyanosis, no pedal edema. Pedal pulses are 2+ bilaterally. NEUROLOGIC: Pupils are equal, round, about 4 mm, reactive to light. Extraocular muscle movements were intact. He moves all 4 extremities spontaneously. SKIN: Normal turgor and the area was examined without overt cellulitis or rash. Please see the wound care nurses' notes for full description of the skin. PSYCHIATRIC: Mood and affect was somewhat schizoaffective/perhaps anxious. He had intact judgment and insight. LABORATORY DATA: For my review, white cell count 8500, hemoglobin 14.4, hematocrit 41.5, platelet count 306. D-dimer within normal limits. Serum sodium 136, potassium 3.9, chloride 103, bicarbonate 22, BUN 8, creatinine 0.7, glucose 111. Lactic acid level within normal limits. Liver function test within normal limits. TSH within normal limits. CRP within normal limits. Urine drug screen was negative. Two sets of blood cultures no growth to date. A chest x-ray was done. I have reviewed the images. I have also reviewed the radiologist's interpretation and I do agree with it while there are no acute findings. He has borderline cardiomegaly and some evidence of hyperinflation with flattening of the right hemidiaphragm. In particular, no gross pneumothorax, no gross bony fracture. The film is rotated. ASSESSMENT: 1. Atrial fibrillation with a rapid ventricular response. 2. Patient is under investigation for COVID infection. 3. History of hypertension. PLAN: He will be kept on the amiodarone drip. I will defer to cardiology for introduction of p.o. amiodarone and further decisions of anticoagulation. I will empirically put him on GI prophylaxis in particular, anticipating that he will be anticoagulated. The AFib workup is ongoing. Continued tobacco abstinence has been counseled. Flu and pneumonia vaccination will be addressed per protocol. Of note, I am going to downgrade him to the telemetry floor and once we have COVID-19 results back, we will be able to decide which __ telemetry floor. We will follow along and make further recommendations as picture progresses/becomes clearer. TID: [id number] RECEIPT: [id number] MCKAYLA/APOLINAR JONES
[2020-08-31 05:21] LABS: Hematocrit 37.2 % (35.5-45.6); Hemoglobin 13.2 gm/dl (11.8-15.2); Mean Corpuscular HGB Conc 36 % (32-34); Mean Corpuscular Volume 89 fl (84-94); Platelet Count 283 K/mm3 (140-440); Red Blood Count 4.18 M/mm3 (3.65-5.03); Red Cell Distribution Width 12.8 % (13.2-15.2)
[2020-08-31 05:32] LABS: Basophils # (Auto) 0.2 K/mm3 (0.0-0.1); Basophils % (Auto) 2.3 % (0.0-1.8); Eosinophils # (Auto) 0.2 K/mm3 (0.0-0.4); Eosinophils % (Auto) 3.3 % (0.0-4.3); Lymphocytes # (Auto) 1.1 K/mm3 (1.2-5.4); Lymphocytes % (Auto) 16.2 % (13.4-35.0); Monocytes # (Auto) 0.4 K/mm3 (0.0-0.8)
[2020-08-31 05:37] LABS: INR 0.98 (0.87-1.13)
[2020-08-31 05:41] LABS: BUN/Creatinine Ratio 11; Blood Urea Nitrogen 10 mg/dL (9-20); Calcium 8.5 mg/dL (8.4-10.2); Hemolysis Index 2
--- NOTE | 2020-08-31 10:28 | Progress Note ---
Assessment and Plan Assessment and plan: Atrial fibrillation with rapid ventricular response. New onset Suspected COVID-19. Hypertension. 08/30. Patient with troponin, TSH and D-dimer within normal limits. Await cardiology consultation. Continue amiodarone drip for now for rate control. Patient will be likely transition to p.o. amiodarone. Follow-up echocardiogram. Follow-up Covid PCR. Patient will be downgraded to IMCU. 08/31. Patient has been transitioned to p.o. amiodarone 200 mg p.o. daily. Await Covid testing then follow-up echocardiogram. History Interval history: No new issues overnight Hospitalist Physical - Constitutional Vitals: Temp Pulse Resp BP Pulse Ox 97.9 F 79 17 122/76 95 08/31/20 06:12 08/31/20 06:12 08/31/20 06:12 08/31/20 06:12 08/31/20 06:12 General appearance: Present: no acute distress, well-nourished - EENT Eyes: Present: PERRL, EOM intact ENT: hearing intact, clear oral mucosa, dentition normal - Neck Neck: Present: supple, normal ROM - Respiratory Respiratory effort: normal Respiratory: bilateral: CTA - Cardiovascular Rhythm: regular Heart Sounds: Present: S1 & S2. Absent: gallop, rub - Extremities Extremities: no ischemia, No edema, Full ROM - Abdominal General gastrointestinal: soft, non-tender, non-distended, normal bowel sounds - Integumentary Integumentary: Present: clear, warm, dry - Neurologic Neurologic: CNII-XII intact, moves all extremities HEART Score - HEART Score Troponin: Troponin T < 0.010 ng/mL (0.00-0.029) 08/30/20 05:47 Results - Labs CBC & Chem 7: 08/31/20 05:02 08/31/20 05:02 Labs: Laboratory Last Values WBC 7.1 K/mm3 (4.5-11.0) 08/31/20 05:02 RBC 4.18 M/mm3 (3.65-5.03) 08/31/20 05:02 Hgb 13.2 gm/dl (11.8-15.2) 08/31/20 05:02 Hct 37.2 % (35.5-45.6) 08/31/20 05:02 MCV 89 fl (84-94) 08/31/20 05:02 MCH 32 pg (28-32) 08/31/20 05:02 MCHC 36 % (32-34) H 08/31/20 05:02 RDW 12.8 % (13.2-15.2) L 08/31/20 05:02 Plt Count 283 K/mm3 (140-440) 08/31/20 05:02 Lymph % (Auto) 16.2 % (13.4-35.0) 08/31/20 05:02 [place] % (Auto) 6.0 % (0.0-7.3) 08/31/20 05:02 Eos % (Auto) 3.3 % (0.0-4.3) 08/31/20 05:02 Baso % (Auto) 2.3 % (0.0-1.8) H 08/31/20 05:02 Lymph # (Auto) 1.1 K/mm3 (1.2-5.4) L 08/31/20 05:02 [place] # (Auto) 0.4 K/mm3 (0.0-0.8) 08/31/20 05:02 Eos # (Auto) 0.2 K/mm3 (0.0-0.4) 08/31/20 05:02 Baso # (Auto) 0.2 K/mm3 (0.0-0.1) H 08/31/20 05:02 Seg Neutrophils % 72.2 % (40.0-70.0) H 08/31/20 05:02 Seg Neutrophils # 5.1 K/mm3 (1.8-7.7) 08/31/20 05:02 PT 12.8 Sec. (12.2-14.9) 08/31/20 05:02 INR 0.98 (0.87-1.13) 08/31/20 05:02 APTT 27.1 Sec. (24.2-36.6) 08/29/20 21:49 D-Dimer 191.60 ng/mlDDU (0-234) 08/29/20 21:49 Sodium 139 mmol/L (137-145) 08/31/20 05:02 Potassium 3.6 mmol/L (3.6-5.0) 08/31/20 05:02 Chloride 103.8 mmol/L (98-107) 08/31/20 05:02 Carbon Dioxide 27 mmol/L (22-30) 08/31/20 05:02 Anion Gap 12 mmol/L 08/31/20 05:02 BUN 10 mg/dL (9-20) 08/31/20 05:02 Creatinine 0.9 mg/dL (0.8-1.3) 08/31/20 05:02 Estimated GFR > 60 ml/min 08/31/20 05:02 BUN/Creatinine Ratio 11 % 08/31/20 05:02 Glucose 119 mg/dL (75-100) H 08/31/20 05:02 Lactic Acid 1.90 mmol/L (0.7-2.0) 08/29/20 21:49 Calcium 8.5 mg/dL (8.4-10.2) 08/31/20 05:02 Phosphorus 2.90 mg/dL (2.5-4.5) 08/30/20 08:40 Magnesium 2.10 mg/dL (1.7-2.3) 08/29/20 21:49 Ferritin 142.4 ng/mL (30.0-300.0) 08/29/20 21:49 Total Bilirubin 0.40 mg/dL (0.1-1.2) 08/29/20 21:49 AST 15 units/L (5-40) 08/29/20 21:49 ALT 19 units/L (7-56) 08/29/20 21:49 Alkaline Phosphatase 84 units/L (35-129) 08/29/20 21:49 Lactate Dehydrogenase 162 units/L (91-180) 08/29/20 21:49 Troponin T < 0.010 ng/mL (0.00-0.029) 08/30/20 05:47 C-Reactive Protein 0.20 mg/dL (0.00-1.30) 08/29/20 21:49 NT-Pro-B Natriuret Pep 434.7 pg/mL (0-900) 08/29/20 21:49 Total Protein 7.2 g/dL (6.3-8.2) 08/29/20 21:49 Albumin 3.9 g/dL (3.9-5) 08/29/20 21:49 Albumin/Globulin Ratio 1.2 % 08/29/20 21:49 Procalcitonin < 0.05 ng/mL (<0.15) 08/29/20 21:49 TSH 0.774 mlU/mL (0.270-4.200) 08/29/20 21:49 Urine Opiates Screen Presumptive negative 08/29/20 23:38 Urine Methadone Screen Presumptive negative 08/29/20 23:38 Ur Barbiturates Screen Presumptive negative 08/29/20 23:38 Ur Phencyclidine Scrn Presumptive negative 08/29/20 23:38 Ur Amphetamines Screen Presumptive negative 08/29/20 23:38 U Benzodiazepines Scrn Presumptive negative 08/29/20 23:38 Urine Cocaine Screen Presumptive negative 08/29/20 23:38 U Marijuana (THC) Screen Presumptive negative 08/29/20 23:38 Drugs of Abuse Note Disclamer 08/29/20 23:38 Microbiology: Microbiology 08/29/20 21:59 Peripheral/Venous Blood Culture - Preliminary NO GROWTH AFTER 24 HOURS 08/29/20 21:49 Peripheral/Venous Blood Culture - Preliminary NO GROWTH AFTER 24 HOURS Garcia/IV: Voiding Method Toilet Active Medications - Current Medications Current Medications: Generic Name Dose Route Start Last Admin Trade Name Freq PRN Reason Stop Dose Admin Acetaminophen 650 mg 08/30/20 00:05 Acetaminophen 325 Mg Tab PO Q4H PRN Pain MILD(1-3)/Fever >100.5/RUSSELL Amiodarone HCl 200 mg 08/30/20 16:00 08/30/20 16:45 Amiodarone 200 Mg Tab PO 200 mg QDAY PAPA Administration Magnesium Hydroxide 30 ml 08/30/20 00:05 Magnesium Hydroxide (Mom) Oral Liqd Udc PO Q4H PRN Constipation Morphine Sulfate 2 mg 08/30/20 00:05 Morphine 2 Mg/1 Ml Inj IV Q4H PRN Pain, Moderate (4-6) Nitroglycerin 0.4 mg 08/29/20 21:42 Nitroglycerin 0.4 Mg Tab Subl SL .Q5MIN PRN Chest Pain Ondansetron HCl 4 mg 08/30/20 00:05 Ondansetron 4 Mg/2 Ml Inj IV Q8H PRN Nausea And Vomiting Sodium Chloride 10 ml 08/30/20 10:00 08/30/20 12:04 Sodium Chloride 0.9% 10 Ml Flush Syringe IV 10 ml BID PAPA Administration Sodium Chloride 10 ml 08/30/20 00:05 Sodium Chloride 0.9% 10 Ml Flush Syringe IV PRN PRN LINE FLUSH
[2020-08-31] MEDS: AMIODARONE 200 MG TAB PO SCH (10:32)
--- NOTE | 2020-08-31 10:35 | Progress Note ---
Assessment and Plan - Patient Problems (1) Atrial fibrillation with rapid ventricular response Current Visit: Yes Status: Acute Plan to address problem: Atrial fibrillation has since converted to normal sinus rhythm. TSH and magnesium levels were normal. Recommendation: Continue amiodarone for suppression of atrial fibrillation Currently, he is on isolation protocol. After COVID evaluation, will order an echocardiogram for left ventricular function assessment. Oral anticoagulation for stroke prophylaxis before discharge. Subjective Date of service: 08/31/20 Interval history: Patient is resting in bed comfortably. No cardiac complaints. COVID 19 test result is pending. Currently, he is sinus rhythm on telemetry. Objective Vital Signs Temp Pulse Resp BP Pulse Ox 08/31/20 06:12 97.9 F 79 17 122/76 95 08/31/20 02:58 84 08/31/20 00:32 97.9 F 90 20 140/98 99 08/31/20 00:10 78 18 127/94 98 08/31/20 00:00 77 21 127/94 97 08/30/20 23:50 84 29 H 131/93 91 08/30/20 23:40 80 18 132/82 98 08/30/20 23:34 90 34 H 132/82 77 L 08/30/20 23:30 86 13 132/82 98 08/30/20 23:00 86 17 129/90 08/30/20 22:30 76 23 112/77 95 08/30/20 22:00 69 26 H 112/77 95 08/30/20 21:30 69 24 113/83 96 08/30/20 21:00 76 22 110/62 100 08/30/20 20:30 83 16 130/85 98 08/30/20 20:00 83 19 130/88 97 08/30/20 19:30 81 14 126/86 98 08/30/20 19:00 87 16 110/83 96 08/30/20 18:30 62 13 113/81 99 08/30/20 18:00 61 17 124/84 96 08/30/20 17:30 78 17 112/79 97 08/30/20 17:00 77 17 120/82 99 08/30/20 16:30 71 26 H 121/88 99 08/30/20 16:00 70 33 H 132/95 98 08/30/20 15:30 77 19 127/99 100 08/30/20 15:00 80 17 124/98 99 08/30/20 14:30 61 17 120/83 97 08/30/20 14:00 74 20 132/90 97 08/30/20 13:30 76 15 114/86 97 08/30/20 13:00 74 20 121/90 100 08/30/20 12:30 73 15 126/75 96 08/30/20 12:00 74 16 116/84 08/30/20 11:30 77 15 115/77 08/30/20 11:00 64 16 120/81 98 - Physical Examination Narrative exam: Deferred due to isolation protocol. General: No Apparent Distress Cardiac: Positive: Reg Rate and Rhythm - Labs and Meds Coagulation 08/31/20 Range/Units 05:02 PT 12.8 (12.2-14.9) Sec. INR 0.98 (0.87-1.13) CBC 08/31/20 Range/Units 05:02 WBC 7.1 (4.5-11.0) K/mm3 RBC 4.18 (3.65-5.03) M/mm3 Hgb 13.2 (11.8-15.2) gm/dl Hct 37.2 (35.5-45.6) % Plt Count 283 (140-440) K/mm3 Lymph # (Auto) 1.1 L (1.2-5.4) K/mm3 [place] # (Auto) 0.4 (0.0-0.8) K/mm3 Eos # (Auto) 0.2 (0.0-0.4) K/mm3 Baso # (Auto) 0.2 H (0.0-0.1) K/mm3 Comprehensive Metabolic Panel 08/31/20 Range/Units 05:02 Sodium 139 (137-145) mmol/L Potassium 3.6 (3.6-5.0) mmol/L Chloride 103.8 (98-107) mmol/L Carbon Dioxide 27 (22-30) mmol/L BUN 10 (9-20) mg/dL Creatinine 0.9 (0.8-1.3) mg/dL Glucose 119 H (75-100) mg/dL Calcium 8.5 (8.4-10.2) mg/dL
--- NOTE | 2020-08-31 13:38 | Progress Note ---
Assessment and Plan Atrial fibrillation with a rapid ventricular response. Patient is under investigation for COVID infection. History of hypertension. - prn supplemental oxygen to keep O2 sats > 90% - prn Bronchodilators (VLADIMIR) with pulm hygiene per RT - rate control per cardiology team - avoid nephrotoxins, renally dose all medications - mobility protocols to prevent pressure ulcers - PT/OT as tolerated - Wound care per RN/WCT - accuchecks with glycemic control per SSI for target blood glucose < 180 mg/dL - continued tobacco abstinence strongly counseled at the bedside - home oxygen evaluation at discharge - GI & VTE prophylaxis - Flu & pneumovax per protocol - Pulmonary out patient follow up for PFTs and optimization of respiratory status - continue other care per attending / other consultants - prn analgesia per pain score ... re-evaluate in am & prn Subjective Date of service: 08/31/20 Principal diagnosis: A-fib with RVR; PUI COVID-19; HTN Interval history: Patient is seen today for: A-fib with RVR; PUI COVID-19; HTN Seen and examined at bedside; 24hour events reviewed; nursing and respiratory care staff consulted; no adverse overnight events reported to me; resting peacefully in bed; denies chest pain or palpitations Objective Vital Signs - 12hr 08/31/20 08/31/20 02:58 06:12 Temperature 97.9 F Pulse Rate 84 79 Respiratory 17 Rate Blood Pressure 122/76 O2 Sat by Pulse 95 Oximetry Constitutional: no acute distress Eyes: non-icteric ENT: oropharynx moist Neck: supple, no lymphadenopathy, no JVD Effort: normal Ascultation: Bilateral: clear Percussion: Bilateral: not dull Cardiovascular: regular rate and rhythm Gastrointestinal: normoactive bowel sounds, soft, non-tender, non-distended Integumentary: normal Extremities: no cyanosis, no edema, pulses normal, no ischemia or petechiae Neurologic: non-focal exam, pupils equal and round, CN II-XII normal, motor strength normal and Psychiatric: mood appropriate, affect normal CBC and BMP: 08/31/20 05:02 08/31/20 05:02 ABG, PT/INR, D-dimer: PT/INR, D-dimer PT 12.8 Sec. (12.2-14.9) 08/31/20 05:02 INR 0.98 (0.87-1.13) 08/31/20 05:02 D-Dimer 191.60 ng/mlDDU (0-234) 08/29/20 21:49 Abnormal lab findings: Abnormal Labs 08/29/20 08/29/20 08/31/20 21:49 21:49 05:02 MCHC 35 H 36 H RDW 12.9 L 12.8 L [place] % (Auto) 9.2 H Baso % (Auto) 2.3 H Lymph # (Auto) 1.1 L Baso # (Auto) 0.2 H Seg Neutrophils % 72.2 H Sodium 136 L BUN 8 L Creatinine 0.7 L Glucose 111 H 08/31/20 05:02 MCHC RDW [place] % (Auto) Baso % (Auto) Lymph # (Auto) Baso # (Auto) Seg Neutrophils % Sodium BUN Creatinine Glucose 119 H Allied health notes reviewed: nursing
[2020-08-31] MEDS: METOPROLOL TARTRATE 100 MG TAB PO SCH ×2 (16:12→22:33)
[2020-08-31] MEDS: APIXABAN 5 MG TAB PO SCH ×2 (16:12→22:33)
[2020-08-31] MEDS: VALSARTAN 160MG TAB PO SCH ×2 (16:12→22:29)
--- NOTE | 2020-09-01 09:53 | Progress Note ---
Assessment and Plan - Patient Problems (1) Atrial fibrillation with rapid ventricular response Current Visit: Yes Status: Acute Plan to address problem: Atrial fibrillation, new onset has since converted to normal sinus rhythm. TSH and magnesium levels were normal. Recommendation: Continue metoprolol and Eliquis for paroxysmal atrial fibrillation. An echocardiogram was done for left ventricular function assessment, results are pending. The patient takes irbesartan as outpatient but is not on formulary at this hospital. Will discontinue valsartan and substitute Irbesartan with Losartan 25 mg once daily. A regular treadmill stress test will be performed in the early outpatient. Subjective Date of service: 09/01/20 Principal diagnosis: A-fib with RVR; PUI COVID-19; HTN Interval history: Patient is resting in bed comfortably. No cardiac complaints. COVID 19 test result is pending. Objective Vital Signs Temp Pulse Pulse Pulse Resp BP Pulse Ox 09/01/20 05:26 98.2 F 63 18 116/80 97 08/31/20 22:33 68 107/78 08/31/20 22:29 68 119/81 08/31/20 22:00 68 67 67 18 98 08/31/20 20:52 98.3 F 57 L 18 119/81 98 08/31/20 15:59 98.7 F 76 125/86 99 08/31/20 12:53 197/119 08/31/20 12:47 98.2 F 88 18 122/91 95 08/31/20 12:30 96 H 19 183/110 100 08/31/20 12:20 103 H 15 220/130 100 08/31/20 12:10 101 H 13 220/130 100 08/31/20 12:00 101 H 20 220/130 99 08/31/20 11:50 100 H 17 179/116 99 08/31/20 10:00 84 - Physical Examination Narrative exam: Deferred due to isolation protocol. General: No Apparent Distress Cardiac: Positive: Reg Rate and Rhythm Neuro: Positive: Grossly Intact Extremities: Absent: edema - Allied health notes Allied health notes reviewed: nursing
--- NOTE | 2020-09-01 09:58 | Progress Note ---
Assessment and Plan Assessment and plan: Atrial fibrillation with rapid ventricular response. New onset Suspected COVID-19. Hypertension. 08/30. Patient with troponin, TSH and D-dimer within normal limits. Await cardiology consultation. Continue amiodarone drip for now for rate control. Patient will be likely transition to p.o. amiodarone. Follow-up echocardiogram. Follow-up Covid PCR. Patient will be downgraded to IMCU. 08/31. Patient has been transitioned to p.o. amiodarone 200 mg p.o. daily. Await Covid testing then follow-up echocardiogram. 09/01. Await Covid testing for echocardiogram. Follow-up echocardiogram. History Interval history: No new issues overnight Hospitalist Physical - Constitutional Vitals: Temp Pulse Resp BP Pulse Ox 98.2 F 63 18 116/80 97 09/01/20 05:26 09/01/20 05:26 09/01/20 05:26 09/01/20 05:26 09/01/20 05:26 General appearance: Present: no acute distress, well-nourished - EENT Eyes: Present: PERRL, EOM intact ENT: hearing intact, clear oral mucosa, dentition normal - Neck Neck: Present: supple, normal ROM - Respiratory Respiratory effort: normal Respiratory: bilateral: CTA - Cardiovascular Rhythm: regular Heart Sounds: Present: S1 & S2. Absent: gallop, rub - Extremities Extremities: no ischemia, No edema, Full ROM - Abdominal General gastrointestinal: soft, non-tender, non-distended, normal bowel sounds - Integumentary Integumentary: Present: clear, warm, dry - Neurologic Neurologic: CNII-XII intact, moves all extremities HEART Score - HEART Score Troponin: Troponin T < 0.010 ng/mL (0.00-0.029) 08/30/20 05:47 Results - Labs CBC & Chem 7: 08/31/20 05:02 08/31/20 05:02 Labs: Laboratory Last Values WBC 7.1 K/mm3 (4.5-11.0) 08/31/20 05:02 RBC 4.18 M/mm3 (3.65-5.03) 08/31/20 05:02 Hgb 13.2 gm/dl (11.8-15.2) 08/31/20 05:02 Hct 37.2 % (35.5-45.6) 08/31/20 05:02 MCV 89 fl (84-94) 08/31/20 05:02 MCH 32 pg (28-32) 08/31/20 05:02 MCHC 36 % (32-34) H 08/31/20 05:02 RDW 12.8 % (13.2-15.2) L 08/31/20 05:02 Plt Count 283 K/mm3 (140-440) 08/31/20 05:02 Lymph % (Auto) 16.2 % (13.4-35.0) 08/31/20 05:02 [place] % (Auto) 6.0 % (0.0-7.3) 08/31/20 05:02 Eos % (Auto) 3.3 % (0.0-4.3) 08/31/20 05:02 Baso % (Auto) 2.3 % (0.0-1.8) H 08/31/20 05:02 Lymph # (Auto) 1.1 K/mm3 (1.2-5.4) L 08/31/20 05:02 [place] # (Auto) 0.4 K/mm3 (0.0-0.8) 08/31/20 05:02 Eos # (Auto) 0.2 K/mm3 (0.0-0.4) 08/31/20 05:02 Baso # (Auto) 0.2 K/mm3 (0.0-0.1) H 08/31/20 05:02 Seg Neutrophils % 72.2 % (40.0-70.0) H 08/31/20 05:02 Seg Neutrophils # 5.1 K/mm3 (1.8-7.7) 08/31/20 05:02 PT 12.8 Sec. (12.2-14.9) 08/31/20 05:02 INR 0.98 (0.87-1.13) 08/31/20 05:02 APTT 27.1 Sec. (24.2-36.6) 08/29/20 21:49 D-Dimer 191.60 ng/mlDDU (0-234) 08/29/20 21:49 Sodium 139 mmol/L (137-145) 08/31/20 05:02 Potassium 3.6 mmol/L (3.6-5.0) 08/31/20 05:02 Chloride 103.8 mmol/L (98-107) 08/31/20 05:02 Carbon Dioxide 27 mmol/L (22-30) 08/31/20 05:02 Anion Gap 12 mmol/L 08/31/20 05:02 BUN 10 mg/dL (9-20) 08/31/20 05:02 Creatinine 0.9 mg/dL (0.8-1.3) 08/31/20 05:02 Estimated GFR > 60 ml/min 08/31/20 05:02 BUN/Creatinine Ratio 11 % 08/31/20 05:02 Glucose 119 mg/dL (75-100) H 08/31/20 05:02 Lactic Acid 1.90 mmol/L (0.7-2.0) 08/29/20 21:49 Calcium 8.5 mg/dL (8.4-10.2) 08/31/20 05:02 Phosphorus 2.90 mg/dL (2.5-4.5) 08/30/20 08:40 Magnesium 2.10 mg/dL (1.7-2.3) 08/29/20 21:49 Ferritin 142.4 ng/mL (30.0-300.0) 08/29/20 21:49 Total Bilirubin 0.40 mg/dL (0.1-1.2) 08/29/20 21:49 AST 15 units/L (5-40) 08/29/20 21:49 ALT 19 units/L (7-56) 08/29/20 21:49 Alkaline Phosphatase 84 units/L (35-129) 08/29/20 21:49 Lactate Dehydrogenase 162 units/L (91-180) 08/29/20 21:49 Troponin T < 0.010 ng/mL (0.00-0.029) 08/30/20 05:47 C-Reactive Protein 0.20 mg/dL (0.00-1.30) 08/29/20 21:49 NT-Pro-B Natriuret Pep 434.7 pg/mL (0-900) 08/29/20 21:49 Total Protein 7.2 g/dL (6.3-8.2) 08/29/20 21:49 Albumin 3.9 g/dL (3.9-5) 08/29/20 21:49 Albumin/Globulin Ratio 1.2 % 08/29/20 21:49 Procalcitonin < 0.05 ng/mL (<0.15) 08/29/20 21:49 TSH 0.774 mlU/mL (0.270-4.200) 08/29/20 21:49 Urine Opiates Screen Presumptive negative 08/29/20 23:38 Urine Methadone Screen Presumptive negative 08/29/20 23:38 Ur Barbiturates Screen Presumptive negative 08/29/20 23:38 Ur Phencyclidine Scrn Presumptive negative 08/29/20 23:38 Ur Amphetamines Screen Presumptive negative 08/29/20 23:38 U Benzodiazepines Scrn Presumptive negative 08/29/20 23:38 Urine Cocaine Screen Presumptive negative 08/29/20 23:38 U Marijuana (THC) Screen Presumptive negative 08/29/20 23:38 Drugs of Abuse Note Disclamer 08/29/20 23:38 Microbiology: Microbiology 08/29/20 21:59 Peripheral/Venous Blood Culture - Preliminary NO GROWTH AFTER 48 HOURS 08/29/20 21:49 Peripheral/Venous Blood Culture - Preliminary NO GROWTH AFTER 48 HOURS Garcia/IV: Voiding Method Toilet Active Medications - Current Medications Current Medications: Generic Name Dose Route Start Last Admin Trade Name Freq PRN Reason Stop Dose Admin Acetaminophen 650 mg 08/30/20 00:05 Acetaminophen 325 Mg Tab PO Q4H PRN Pain MILD(1-3)/Fever >100.5/RUSSELL Apixaban 5 mg 08/31/20 14:30 08/31/20 22:33 Apixaban 5 Mg Tab PO 5 mg Q12HR PAPA Administration Losartan Potassium 25 mg 09/01/20 10:00 Losartan 25 Mg Tab PO QDAY PAPA Magnesium Hydroxide 30 ml 08/30/20 00:05 Magnesium Hydroxide (Mom) Oral Liqd Udc PO Q4H PRN Constipation Metoprolol Tartrate 100 mg 08/31/20 15:00 08/31/20 22:33 Metoprolol Tartrate 100 Mg Tab PO Not Given BID PAPA Morphine Sulfate 2 mg 08/30/20 00:05 Morphine 2 Mg/1 Ml Inj IV Q4H PRN Pain, Moderate (4-6) Nitroglycerin 0.4 mg 08/29/20 21:42 Nitroglycerin 0.4 Mg Tab Subl SL .Q5MIN PRN Chest Pain Ondansetron HCl 4 mg 08/30/20 00:05 Ondansetron 4 Mg/2 Ml Inj IV Q8H PRN Nausea And Vomiting Sodium Chloride 10 ml 08/30/20 10:00 08/31/20 22:34 Sodium Chloride 0.9% 10 Ml Flush Syringe IV 10 ml BID PAPA Administration Sodium Chloride 10 ml 08/30/20 00:05 Sodium Chloride 0.9% 10 Ml Flush Syringe IV PRN PRN LINE FLUSH
--- NOTE | 2020-09-01 10:37 | Electrocardiograph Report ---
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
--- NOTE | 2020-09-01 10:37 | Electrocardiograph Report ---
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
--- NOTE | 2020-09-01 10:48 | Electrocardiograph Report ---
[facility] Test Date: 2020-08-31 Test Time: 08:19:11 Pat Name: GENESIS BLACKMON Department: Room: [facility] 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
[2020-09-01] MEDS: APIXABAN 5 MG TAB PO SCH ×2 (11:21→21:21)
[2020-09-01] MEDS: METOPROLOL TARTRATE 100 MG TAB PO SCH ×3 (11:27→23:58)
[2020-09-01] MEDS: LOSARTAN 25 MG TAB PO SCH (11:27)
--- NOTE | 2020-09-01 14:06 | Progress Note ---
Assessment and Plan Atrial fibrillation with a rapid ventricular response. Patient is under investigation for COVID infection. History of hypertension. - follow 2D ECHO - complete cardiac w/up - continue care as below otherwise; - prn supplemental oxygen to keep O2 sats > 90% - prn Bronchodilators (VLADIMIR) with pulm hygiene per RT - avoid nephrotoxins, renally dose all medications - mobility protocols to prevent pressure ulcers - PT/OT as tolerated - Wound care per RN/WCT - accuchecks with glycemic control per SSI for target blood glucose < 180 mg/dL - continued tobacco abstinence strongly counseled at the bedside - home oxygen evaluation at discharge - GI & VTE prophylaxis - Flu & pneumovax per protocol - Pulmonary out patient follow up for PFTs and optimization of respiratory status - continue other care per attending / other consultants - prn analgesia per pain score ... re-evaluate in am & prn Subjective Date of service: 09/01/20 Principal diagnosis: A-fib with RVR; PUI COVID-19; HTN Interval history: Patient is seen today for: A-fib with RVR; PUI COVID-19; HTN Seen and examined at bedside; 24hour events reviewed; nursing and respiratory care staff consulted; no adverse overnight events reported to me; resting peacefully in bed; cardiology evaluation ongoing; 2D ECHO pending; denies a h/o tobacco use / abuse Objective Vital Signs - 12hr 09/01/20 09/01/20 05:26 11:27 Temperature 98.2 F Pulse Rate 63 76 Respiratory 18 Rate Blood Pressure 116/80 120/81 O2 Sat by Pulse 97 Oximetry Constitutional: no acute distress Eyes: non-icteric ENT: oropharynx moist Neck: supple, no lymphadenopathy, no JVD Effort: normal Ascultation: Bilateral: clear Percussion: Bilateral: not dull Cardiovascular: regular rate and rhythm Gastrointestinal: normoactive bowel sounds, soft, non-tender, non-distended Integumentary: normal Extremities: no cyanosis, no edema, pulses normal, no ischemia or petechiae Neurologic: non-focal exam, pupils equal and round, CN II-XII normal, motor strength normal and Psychiatric: mood appropriate, affect normal CBC and BMP: 08/31/20 05:02 08/31/20 05:02 ABG, PT/INR, D-dimer: PT/INR, D-dimer PT 12.8 Sec. (12.2-14.9) 08/31/20 05:02 INR 0.98 (0.87-1.13) 08/31/20 05:02 D-Dimer 191.60 ng/mlDDU (0-234) 08/29/20 21:49 Abnormal lab findings: Abnormal Labs 08/29/20 08/29/20 08/31/20 21:49 21:49 05:02 MCHC 35 H 36 H RDW 12.9 L 12.8 L [place] % (Auto) 9.2 H Baso % (Auto) 2.3 H Lymph # (Auto) 1.1 L Baso # (Auto) 0.2 H Seg Neutrophils % 72.2 H Sodium 136 L BUN 8 L Creatinine 0.7 L Glucose 111 H 08/31/20 05:02 MCHC RDW [place] % (Auto) Baso % (Auto) Lymph # (Auto) Baso # (Auto) Seg Neutrophils % Sodium BUN Creatinine Glucose 119 H Allied health notes reviewed: nursing
--- NOTE | 2020-09-02 08:00 | Discharge Summary ---
Providers - Providers Date of Admission: 08/30/20 01:52 Date of discharge: 09/02/20 Attending physician: DANIS PAREDES 08/29/20 Consult to Physician [CONS] Stat Comment: Consulting Provider: HARRIS SIDDIQUI Physician Instructions: Reason For Exam: afib rvr 08/30/20 01:53 Consult to Physician [CONS] Routine Comment: Consulting Provider: ZEUS GUEVARA Physician Instructions: Reason For Exam: Afib with RVR- On cardzem drip Primary care physician: [employer] Hospitalization Condition: Serious Hospital course: 50-year old male with a history of hypertension and No prior cardiac history. He presents to the emergency department with dizziness and palpitations, found with rapid atrial fibrillation, rate 126. The patient was admitted with diagnosis of new onset A. fib with RVR. The patient was started on IV amiodarone and a cardiology consultation was obtained. Shortly after administration of amiodarone, patient converted to normal sinus rhythm. Chest x-ray reports no acute findings. TSH and magnesium levels were normal. Patient was also noted by the ER physician to have suspected COVID-19 but COVID-19 testing was negative. Hospital course: 08/30. Patient with troponin, TSH and D-dimer within normal limits. Await cardiology consultation. Continue amiodarone drip for now for rate control. Patient will be likely transition to p.o. amiodarone. Follow-up echocardiogram. Follow-up Covid PCR. Patient will be downgraded to IMCU. 08/31. Patient has been transitioned to p.o. amiodarone 200 mg p.o. daily. Await Covid testing then follow-up echocardiogram. 09/01. Await Covid testing for echocardiogram. Follow-up echocardiogram. Echocardiogram revealed left ventricular systolic function at lower limits of normal with an EF of 50 to 55%. Borderline concentric left ventricular hypertrophy. D/C time 35 min Disposition: - TO HOME OR SELFCARE Final Discharge Diagnosis (Prints w/discharge instructions): new afib, htn Core Measure Documentation - Palliative Care Palliative Care/ Comfort Measures: Not Applicable - Core Measures Any of the following diagnoses?: none Exam - Constitutional Vitals: Temp Pulse Resp BP Pulse Ox 98.3 F 69 20 99/77 95 09/02/20 06:41 09/02/20 06:41 09/02/20 06:41 09/02/20 06:41 09/02/20 06:41 General appearance: Present: no acute distress, well-nourished - EENT Eyes: Present: PERRL ENT: hearing intact, clear oral mucosa - Neck Neck: Present: supple, normal ROM - Respiratory Respiratory effort: normal Respiratory: bilateral: CTA - Cardiovascular Heart Sounds: Present: S1 & S2. Absent: rub, click - Extremities Extremities: pulses symmetrical, No edema Peripheral Pulses: within normal limits - Abdominal General gastrointestinal: Present: soft, non-tender, non-distended, normal bowel sounds Male genitourinary: Present: normal - Integumentary Integumentary: Present: clear, warm, dry - Musculoskeletal Musculoskeletal: gait normal, strength equal bilaterally - Psychiatric Psychiatric: appropriate mood/affect, intact judgment & insight - Neurologic Neurologic: CNII-XII intact, moves all extremities Plan Activity: advance as tolerated Weight Bearing Status: Weight Bear as Tolerated Diet: regular Follow up with: PRIMARY MD SULMA [Primary Care Provider] - 3-5 Days AWILDA SIMMONS MD [Staff Physician] - 7 Days Prescriptions: Losartan [Cozaar] 25 mg PO QDAY #30 tablet Apixaban [Eliquis] 5 mg PO Q12HR #60 tablet Metoprolol [Lopressor TAB] 100 mg PO BID #60 tablet
--- NOTE | 2020-09-02 10:28 | Progress Note ---
Assessment and Plan - Patient Problems (1) Atrial fibrillation with rapid ventricular response Current Visit: Yes Status: Acute Plan to address problem: Atrial fibrillation, new onset has since converted to normal sinus rhythm. TSH and magnesium levels were normal. LVEF 50-55% by echo this presentation Recommendation: Continue metoprolol and Eliquis for paroxysmal atrial fibrillation. Stable cardiac carr. As outpatient, the patient will follow up in our office for an exercise stress test. Subjective Date of service: 09/02/20 Principal diagnosis: A-fib with RVR; PUI COVID-19; HTN Interval history: Patient has no cardiac complaints. Denies dizziness, denies palpitations, and denies SOB. Stable sinus rhythm on telemetry. Objective Vital Signs Temp Pulse Pulse Pulse Resp BP BP 09/02/20 06:41 98.3 F 69 20 99/77 09/01/20 23:52 99.1 F 57 L 20 117/79 09/01/20 22:00 67 67 18 09/01/20 21:24 98.4 F 62 18 98/74 09/01/20 18:56 98.5 F 68 18 119/81 09/01/20 11:27 76 120/81 Pulse Ox 09/02/20 06:41 95 09/01/20 23:52 96 09/01/20 22:00 96 09/01/20 21:24 97 09/01/20 18:56 97 09/01/20 11:27 - Physical Examination General: No Apparent Distress HEENT: Positive: PERRL Neck: Positive: trachea midline Cardiac: Positive: Reg Rate and Rhythm Lungs: Positive: Normal Breath Sounds Neuro: Positive: Grossly Intact Extremities: Absent: edema - Allied health notes Allied health notes reviewed: nursing
[2020-09-02] MEDS: METOPROLOL TARTRATE 100 MG TAB PO SCH (10:37)
[2020-09-02] MEDS: LOSARTAN 25 MG TAB PO SCH (10:38)
[2020-09-02] MEDS: APIXABAN 5 MG TAB PO SCH (10:38)
[2020-09-02 10:39] VITALS: BP 122/82
--- NOTE | 2020-09-02 15:01 | Progress Note ---
Assessment and Plan Atrial fibrillation with a rapid ventricular response. Patient is under investigation for COVID infection. History of hypertension. - 2D ECHO shows borderline EF (50-55%) - continue care as below otherwise; - prn supplemental oxygen to keep O2 sats > 90% - prn Bronchodilators (VLADIMIR) with pulm hygiene per RT - avoid nephrotoxins, renally dose all medications - mobility protocols to prevent pressure ulcers - PT/OT as tolerated - Wound care per RN/WCT - accuchecks with glycemic control per SSI for target blood glucose < 180 mg/dL - continued tobacco abstinence strongly counseled at the bedside - home oxygen evaluation at discharge - GI & VTE prophylaxis - Flu & pneumovax per protocol - Pulmonary out patient follow up for PFTs and optimization of respiratory status - continue other care per attending / other consultants - prn analgesia per pain score .... discharge planning ok pulmonary-carr ... re-evaluate in am & prn Subjective Date of service: 09/02/20 Principal diagnosis: A-fib with RVR; PUI COVID-19; HTN Interval history: Patient is seen today for: A-fib with RVR; PUI COVID-19; HTN Seen and examined at bedside; 24hour events reviewed; nursing and respiratory care staff consulted; no adverse overnight events reported to me; resting peacefully in bed; doing better; no chest pain; cleared for discharge; no palpitations Objective Vital Signs - 12hr 09/02/20 09/02/20 09/02/20 06:41 10:00 10:37 Temperature 98.3 F Pulse Rate 69 77 Pulse Rate [ 67 Left Radial] Pulse Rate [ 67 Right Radial] Respiratory 20 18 Rate Blood Pressure 99/77 122/82 O2 Sat by Pulse 95 98 Oximetry 09/02/20 10:38 Temperature Pulse Rate 77 Pulse Rate [ Left Radial] Pulse Rate [ Right Radial] Respiratory Rate Blood Pressure 122/82 O2 Sat by Pulse Oximetry Constitutional: no acute distress Eyes: non-icteric ENT: oropharynx moist Neck: supple, no lymphadenopathy, no JVD Effort: normal Ascultation: Bilateral: clear Percussion: Bilateral: not dull Cardiovascular: regular rate and rhythm Gastrointestinal: normoactive bowel sounds, soft, non-tender, non-distended Integumentary: normal Extremities: no cyanosis, no edema, pulses normal, no ischemia or petechiae Neurologic: non-focal exam, pupils equal and round, CN II-XII normal, motor str ength normal and Psychiatric: mood appropriate, affect normal CBC and BMP: 08/31/20 05:02 08/31/20 05:02 ABG, PT/INR, D-dimer: PT/INR, D-dimer PT 12.8 Sec. (12.2-14.9) 08/31/20 05:02 INR 0.98 (0.87-1.13) 08/31/20 05:02 D-Dimer 191.60 ng/mlDDU (0-234) 08/29/20 21:49 Abnormal lab findings: Abnormal Labs 08/29/20 08/29/20 08/31/20 21:49 21:49 05:02 MCHC 35 H 36 H RDW 12.9 L 12.8 L Bertie % (Auto) 9.2 H Baso % (Auto) 2.3 H Lymph # (Auto) 1.1 L Baso # (Auto) 0.2 H Seg Neutrophils % 72.2 H Sodium 136 L BUN 8 L Creatinine 0.7 L Glucose 111 H 08/31/20 05:02 MCHC RDW Bertie % (Auto) Baso % (Auto) Lymph # (Auto) Baso # (Auto) Seg Neutrophils % Sodium BUN Creatinine Glucose 119 H Allied health notes reviewed: nursing
== END 2020-09-02 14:19 | disposition home or self-care (01) | DRG 310 ==
LOC: ED 19:01 → 3A 22:52 → OBSVTOIN 08-30 01:52 → CC1 08-30 01:57 → IMCU 08-30 10:52 → 3A 08-30 14:40
PROVIDERS: ADMIT Internal Medicine Geriatric Medicine; ATTEND Hospitalist
DX: I48.0 Paroxysmal atrial fibrillation (principal); Z20.822 Contact with and (suspected) exposure to COVID-19; I10 Essential (primary) hypertension; Z79.899 Other long term (current) drug therapy; Z82.49 Family history of ischemic heart disease and other diseases of the circulatory system; Z88.8 Allergy status to other drugs, medicaments and biological substances; Z79.891 Long term (current) use of opiate analgesic; Z79.01 Long term (current) use of anticoagulants; M19.90 Unspecified osteoarthritis, unspecified site
CPT/HCPCS: 36415; 71045; 80048; 80053; 80307; 82140; 82728; 83615; 83735; 83880; 84100; 84145; 84443; 84484; 85025; 85379; 85610; 85730; 86140; 87040; 93005; 93306; 96365; G0378; J0282; J1650; J7060; U0003

== ENCOUNTER 2020-09-14 16:02 | Observation (INO) | payer BC ==
[2020-09-14] MEDS ORDERED: SODIUM CHLORIDE 0.9% 1000 ML 1,000 ML IV ONE ×2 (16:35)
--- NOTE | 2020-09-14 16:39 | Emergency Department Report ---
ED Syncope HPI - General Chief Complaint: Syncope Stated Complaint: BLEEDING Time Seen by Provider: 09/14/20 16:21 Source: patient, EMS Exam Limitations: no limitations - History of Present Illness Initial Comments: Patient is a 50-year-old male who presents emergency room with complaints of near syncope and syncopal episode and bleeding from a varicose vein on his right lower extremity. Patient states approximately 240 he started having acute blood loss from a varicose vein in his right lower extremity and is unable to control it. Patient states that while he was at home he had 2 near syncopal episodes where he became dizzy and lightheaded and he laid on the ground and the symptoms resolved. Patient states that his varicose vein has been bleeding since 240 nonstop. Patient states that he called EMS because again that the bleeding stopped and he became really dizzy. Patient states that EMS was able to get the bleeding to stop with direct pressure. Patient was then in the hospital and being transferred to triage and had a syncopal episode and then brought directly back to the acute care area. Patient denies chest pain. Patient states he is feeling weak, lightheaded and dizzy at this time. Patient denies chest pain or shortness of breath. Patient denies fever and chills. Patient denies prolonged loss of consciousness. Patient denies trauma. Patient denies hitting his head. Patient states he has a history of A. fib and is currently taking a beta-joann and an anticoagulant for blood thinner. Patient is not sure of the name. Patient denies recent travel. Patient denies recent international travel. Patient denies exposure to the novel coronavirus. Patient denies sick contacts. Patient denies fever and chills. Patient denies cough. Patient denies diarrhea. Patient denies coming in contact with anybody with symptoms of the novel coronavirus. Timing/Prior Episodes: multiple episodes today Precipitating Factors: Positive: blurred vision, lightheadedness Context: standing, activity Loss of Consciousness: brief (seconds) Current Symptoms: dizziness, lightheadedness, weakness - Related Data Allergies/Adverse Reactions: Allergies lisinopril Allergy (Verified 08/29/20 20:43) Unknown Home Medications: Ambulatory Orders Apixaban [Eliquis] 5 mg PO Q12HR #60 tablet 09/02/20 Losartan [Cozaar] 25 mg PO QDAY #30 tablet 09/02/20 Metoprolol [Lopressor TAB] 100 mg PO BID #60 tablet 09/02/20 ED Review of Systems ROS: Stated complaint: BLEEDING Other details as noted in HPI Constitutional: malaise, weakness. denies: chills, fever Eyes: denies: eye pain, eye discharge, vision change ENT: denies: ear pain, throat pain Respiratory: denies: cough, shortness of breath, wheezing Cardiovascular: denies: chest pain, palpitations Endocrine: no symptoms reported Gastrointestinal: denies: abdominal pain, nausea, diarrhea Genitourinary: denies: urgency, dysuria Musculoskeletal: denies: back pain, joint swelling, arthralgia Skin: denies: rash, lesions Neurological: as per HPI, weakness. denies: headache, paresthesias Psychiatric: denies: anxiety, depression Hematological/Lymphatic: denies: easy bleeding, easy bruising ED Past Medical Hx - Past Medical History Previous Medical History?: Yes Hx Hypertension: Yes Hx Diabetes: No Hx Arthritis: Yes Additional medical history: varicose veins - Surgical History Past Surgical History?: No Additional Surgical History: testicle surgery(child)- - Family History Family history: no significant - Social History Smoking Status: Current Some Day Smoker Substance Use Type: None - Medications Home Medications: Home Medications Medication Instructions Recorded Confirmed Last Taken Type Apixaban [Eliquis] 5 mg PO Q12HR #60 tablet 09/02/20 Unknown Rx Losartan [Cozaar] 25 mg PO QDAY #30 tablet 09/02/20 Unknown Rx Metoprolol [Lopressor TAB] 100 mg PO BID #60 tablet 09/02/20 Unknown Rx ED Physical Exam - General General appearance: alert, in no apparent distress - Head Head exam: Present: atraumatic, normocephalic - Eye Eye exam: Present: normal appearance, PERRL Pupils: Present: normal accommodation, other (Scleral pallor noted) - ENT ENT exam: Present: mucous membranes dry, other (Oral cavity and lips are pale) - Neck Neck exam: Present: normal inspection - Respiratory Respiratory exam: Present: normal lung sounds bilaterally. Absent: respiratory distress, wheezes, rales - Cardiovascular Cardiovascular Exam: Present: regular rate, normal rhythm, normal heart sounds. Absent: systolic murmur, diastolic murmur, rubs, gallop - GI/Abdominal GI/Abdominal exam: Present: soft, normal bowel sounds. Absent: distended, tenderness, guarding - Rectal Rectal exam: Present: deferred - Extremities Exam Extremities exam: Present: normal inspection - Back Exam Back exam: Present: normal inspection - Neurological Exam Neurological exam: Present: alert, oriented X3 - Psychiatric Psychiatric exam: Present: normal affect, normal mood - Skin Skin exam: Present: warm, dry, normal color, other (Open area noted on the right anterior lower extremity. No bleeding is noted. Sterile dressing reapplied.). 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 Patient is bradycardic and hypotensive. Patient is pale. Patient will be given fluids. 09/14/20 16:38 Reevaluation #2: Patient blood pressure is improved. Patient's blood pressure is currently 103 and 107 systolically. Patient is still on fluids. 09/14/20 17:02 Reevaluation #3: Patient blood pressure is dropped below 100. Patient's current blood pressure is 98/63. Patient states he is feeling a little bit better. Patient's lip coloration has improved. Patient is still having scleral pallor. Patient is still bradycardic. Patient is still having dizziness with movement. I discussed all results with patient. I discussed plan of care with patient. Patient agrees with plan of care and admission. Patient to be admitted to the hospitalist service. 09/14/20 18:03 - Consultations Consultation #1: Hospitalist consulted for admission. Hospitalist to admit patient. 09/14/20 18:03 ED Medical Decision Making - Lab Data Result diagrams: 09/14/20 16:51 09/14/20 16:51 - EKG Data -: EKG Interpreted by Me EKG shows normal: sinus rhythm, axis, intervals, QRS complexes, ST-T waves Rate: bradycardia - Radiology Data Radiology results: report reviewed CT HEAD WITHOUT CONTRAST INDICATION / CLINICAL INFORMATION: dizziness, syncope. TECHNIQUE: All CT scans at this location are performed using CT dose reduction for ALARA by means of automated exposure control. COMPARISON: None available. FINDINGS: HEMORRHAGE: None. EXTRA-AXIAL SPACES: Normal in size and morphology for the patient's age. VENTRICULAR SYSTEM: Normal in size and morphology for the patient's age. CEREBRAL PARENCHYMA: No significant abnormality. No acute territorial infarct. MIDLINE SHIFT OR HERNIATION: None. CEREBELLUM / BRAINSTEM: No significant abnormality. ORBITS: Normal as visualized. SOFT TISSUES of HEAD: No significant abnormality. CALVARIUM: No significant abnormality. PARANASAL SINUSES / MASTOID AIR CELLS: Normal as visualized. ADDITIONAL FINDINGS: None. IMPRESSION: 1. No acute intracranial abnormality. - Medical Decision Making Patient is a 50-year-old male that presents emergency room with near syncope and syncopal episode. Patient had near syncope at home after a varicose vein began to bleed. Patient came to the hospital with EMS and passed out on the way to triage. Patient was then transferred to an acute care room. Patient found to be severely bradycardic and hypotensive. Patient started on fluids and his blood pressure improved ever so slightly. Patient still remains symptomatic with dizziness and lightheadedness even after fluids. Patient found to have mild anemia at 10.1. The rest of the patient's labs are unremarkable except for mildly elevated PT/INR. Patient had an EKG done which shows severe sinus bradycardia at a rate of 42. The rest of the EKG showed no acute findings. No ST segment changes. I personally reviewed the EKG. Patient has CT scan of the head which shows no acute findings. Patient mated to the hospital service for further evaluation treatment. Critical care time documented due to the multiple reassessments, prolonged time at the bedside, interpretation of diagnostics and labs. - Differential Diagnosis Syncope, bradycardic syncope, cardiac syncope, acute blood loss, Critical Care Time: Yes Critical care time in (mins) excluding proc time.: 35 Critical care attestation.: If time is entered above; I have spent that time in minutes in the direct care of this critically ill patient, excluding procedure time. Critical Care Time: 35 minutes ED Disposition Clinical Impression: Bleeding from varicose veins of right lower extremity, Dizziness, Bradycardia Syncope Qualifiers: Syncope type: unspecified Qualified Code(s): R55 - Syncope and collapse Hypotension Qualifiers: Hypotension type: unspecified hypotension type Qualified Code(s): I95.9 - Hypotension, unspecified Anemia Qualifiers: Anemia type: unspecified type Qualified Code(s): D64.9 - Anemia, unspecified Disposition: DC09 OP ADMIT IP TO THIS HOSP Is pt being admited?: Yes Does the pt Need Aspirin: No Condition: Critical Instructions: Syncope (ED) Time of Disposition: 18:07
[2020-09-14 17:10] LABS: Basophils # (Auto) 0.1 K/mm3 (0.0-0.1); Eosinophils # (Auto) 0.3 K/mm3 (0.0-0.4); Eosinophils % (Auto) 3.3 % (0.0-4.3); Hematocrit 29.1 % (35.5-45.6); Hemoglobin 10.1 gm/dl (11.8-15.2); Lymphocytes # (Auto) 1.7 K/mm3 (1.2-5.4); Lymphocytes % (Auto) 20.6 % (13.4-35.0); Mean Corpuscular HGB Conc 35 % (32-34); Mean Corpuscular Volume 90 fl (84-94); Monocytes # (Auto) 0.6 K/mm3 (0.0-0.8); Monocytes % (Auto) 7.6 % (0.0-7.3); Platelet Count 288 K/mm3 (140-440); Red Blood Count 3.22 M/mm3 (3.65-5.03); Red Cell Distribution Width 12.9 % (13.2-15.2)
[2020-09-14 17:22] LABS: INR 1.2 (0.87-1.13)
[2020-09-14 17:23] LABS: Partial Thromboplastin Time 25.2 Sec. (24.2-36.6)
[2020-09-14 17:30] LABS: Alanine Aminotransferase 15 units/L (7-56); Albumin 3.2 g/dL (3.9-5); BUN/Creatinine Ratio 14; Blood Urea Nitrogen 13 mg/dL (9-20); Calcium 8.1 mg/dL (8.4-10.2); Hemolysis Index 7
--- NOTE | 2020-09-14 17:53 | Cat Scan Report ---
CT HEAD WITHOUT CONTRAST INDICATION / CLINICAL INFORMATION: dizziness, syncope. TECHNIQUE: All CT scans at this location are performed using CT dose reduction for ALARA by means of automated e xposure control. COMPARISON: None available. FINDINGS: HEMORRHAGE: None. EXTRA-AXIAL SPACES: Normal in size and morphology for the patient's age. VENTRICULAR SYSTEM: Normal in size and morphology for the patient's age. CEREBRAL PARENCHYMA: No significant abnormality. No acute territorial infarct. MIDLINE SHIFT OR HERNIATION: None. CEREBELLUM / BRAINSTEM: No significant abnormality. ORBITS: Normal as visualized. SOFT TISSUES of HEAD: No significant abnormality. CALVARIUM: No significant abnormality. PARANASAL SINUSES / MASTOID AIR CELLS: Normal as visualized. ADDITIONAL FINDINGS: None. IMPRESSION: 1. No acute intracranial abnormality. Signer Name: Dave Alvarez MD Signed: 09/14/2020 5:48 PM Workstation Name: [id number]
[2020-09-14] MEDS ORDERED: ONDANSETRON 4 MG/2 ML INJ IV PRN (18:20)
[2020-09-14] MEDS ORDERED: ACETAMINOPHEN 325 MG TAB PO PRN (18:20)
--- NOTE | 2020-09-14 18:25 | History and Physical Report ---
History of Present Illness Chief complaint: I passed out History of present illness: 50 YO Male with HTN, Atrial Fib on Therapeutic Anticoagulation, OA, Nicotine Dependence presents to ED for evaluation. Pt reports " I passed out after started bleeding". Patient states that he experienced dizziness after he noticed blood oozing from his varicose vein on his right leg. Patient states that he was unable to control the blood loss and subsequently felt dizzy. Patient states that he laid on the ground with mild improvement in symptoms. EMS was notified and upon arrival the patient was found to be in distress and subsequently transported to [facility] for further care and evaluation. The patient was seen and evaluated in the emergency department. All lab and imaging studies reviewed. Patient found to have symptomatic bradycardia as well as blood loss anemia. Patient placed in observation status and admitted to medical floor due to increased risk of worsening symptoms. Patient denies fever, chills, chest pain, palpitation, productive cough, skin rash, recent ill contacts, trauma, or known exposure to COVID-19. Prior admission on 08/31/2019 reviewed. All medication listed at time of admission has been reconciled. Past History Past Medical History: atrial fib, hypertension, other (See HPI) Past Surgical History: Other (Testicular surgery) Social history: single. denies: smoking, alcohol abuse, prescription drug abuse Family history: hypertension Medications and Allergies Allergies Allergy/AdvReac Type Severity Reaction Status Date / Time lisinopril Allergy Unknown Verified 08/29/20 20:43 Home Medications Medication Instructions Recorded Confirmed Last Taken Type Apixaban [Eliquis] 5 mg PO Q12HR #60 tablet 09/02/20 Unknown Rx Losartan [Cozaar] 25 mg PO QDAY #30 tablet 09/02/20 Unknown Rx Metoprolol [Lopressor TAB] 100 mg PO BID #60 tablet 09/02/20 Unknown Rx Active Meds: Active Medications Acetaminophen (Acetaminophen 325 Mg Tab) 650 mg PO Q4H PRN PRN Reason: Pain MILD(1-3)/Fever >100.5/RUSSELL Sodium Chloride (Nacl 0.9% 1000 Ml) 1,000 mls @ 250 mls/hr IV ONCE ONE Stop: 09/14/20 20:34 Last Admin: 09/14/20 16:50 Dose: 250 mls/hr Documented by: Ondansetron HCl (Ondansetron 4 Mg/2 Ml Inj) 4 mg IV Q8H PRN PRN Reason: Nausea And Vomiting Sodium Chloride (Sodium Chloride 0.9% 10 Ml Flush Syringe) 10 ml IV BID PAPA Sodium Chloride (Sodium Chloride 0.9% 10 Ml Flush Syringe) 10 ml IV PRN PRN PRN Reason: LINE FLUSH Review of Systems Constitutional: weakness (Hospitalist) Ears, nose, mouth and throat: no ear pain, no ear discharge, no tinnitis, no decreased hearing Cardiovascular: no chest pain, no orthopnea, no rapid/irregular heart beat, no edema, no lightheadedness Respiratory: no cough, no cough with sputum, no excessive sputum, no hemoptysis, no shortness of breath Gastrointestinal: no abdominal pain, no vomiting, no diarrhea, no constipation, no change in bowel habits, no hematemesis Genitourinary Male: no hematuria, no flank pain, no discharge, no urinary frequ ency, no urinary hesitancy, no nocturia Rectal: no pain, no incontinence, no bleeding Musculoskeletal: no neck stiffness, no neck pain, no shooting arm pain, no low back pain Integumentary: no rash, no pruritis, no redness, no sores, no wounds Neurological: no transient paralysis, no parathesias, no numbness, no tingling, no syncope, no ataxia Psychiatric: no anxiety, no memory loss, no sleep disturbances, no hypersomnia, no change in appetite, no change in libido, no suicidal ideation, no disorientation Endocrine: no cold intolerance, no heat intolerance, no polyphagia, no polydipsia, no polyuria, no nocturia Hematologic/Lymphatic: no easy bruising, no easy bleeding, no lymphadenopathy, no lymphedema Allergic/Immunologic: no urticaria, no allergic rhinitis, no wheezing, no anaphylaxis Exam - Constitutional Vitals: Temp Pulse Resp BP Pulse Ox 97.8 F 50 L 14 97/67 100 09/14/20 16:05 09/14/20 16:05 09/14/20 16:05 09/14/20 16:05 09/14/20 16:05 General appearance: Present: mild distress - EENT Eyes: Present: PERRL ENT: hearing intact, clear oral mucosa - Respiratory Respiratory effort: normal Respiratory: bilateral: CTA - Cardiovascular Heart Sounds: Present: S1 & S2. Absent: rub, click - Extremities Extremities: pulses symmetrical, No edema Peripheral Pulses: within normal limits - Abdominal General gastrointestinal: Present: soft, non-tender, non-distended, normal bowel sounds Male genitourinary: Present: normal - Integumentary Integumentary: Present: dry, clammy, decreased turgor - Musculoskeletal Musculoskeletal: gait normal, strength equal bilaterally - Psychiatric Psychiatric: appropriate mood/affect, intact judgment & insight - Neurologic Neurologic: CNII-XII intact, moves all extremities Results - Labs CBC & Chem 7: 09/14/20 16:51 09/14/20 16:51 Labs: Abnormal lab results 09/14/20 09/14/20 09/14/20 Range/Units 16:51 16:51 16:51 RBC 3.22 L (3.65-5.03) M/mm3 Hgb 10.1 L (11.8-15.2) gm/dl Hct 29.1 L (35.5-45.6) % MCHC 35 H (32-34) % RDW 12.9 L (13.2-15.2) % Bra[place] % (Auto) 7.6 H (0.0-7.3) % PT 15.0 H (12.2-14.9) Sec. INR 1.20 H (0.87-1.13) Carbon Dioxide 21 L (22-30) mmol/L Glucose 150 H (75-100) mg/dL Calcium 8.1 L (8.4-10.2) mg/dL Total Protein 5.0 L (6.3-8.2) g/dL Albumin 3.2 L (3.9-5) g/dL Assessment and Plan - Patient Problems (1) Symptomatic bradycardia Current Visit: Yes Status: Acute Plan to address problem: Remote telemetry monitoring, supportive care (2) Atrial fibrillation Current Visit: Yes Status: Acute Qualifiers: Atrial fibrillation type: paroxysmal Qualified Code(s): I48.0 - Paroxysmal atrial fibrillation Plan to address problem: Rate currently controlled. Hold therapeutic anticoagulation now due to blood loss anemia. (3) Nicotine dependence Current Visit: Yes Status: Acute Qualifiers: Nicotine product type: cigarettes Substance use status: in withdrawal Qualified Code(s): F17.213 - Nicotine dependence, cigarettes, with withdrawal Plan to address problem: Supportive care, behavior change counseling, +15 minutes. Smoking cessation counseling (4) Bleeding from varicose veins of right lower extremity Current Visit: Yes Status: Acute Plan to address problem: Supportive care, continue direct pressure, (5) DVT prophylaxis Current Visit: No Status: Acute Plan to address problem: SCD to bilateral lower extremities while in bed, patient is ambulatory. Hold anticoagulation now due to lower extremity bleeding.
[2020-09-15 11:16] LABS: BUN/Creatinine Ratio 10; Blood Urea Nitrogen 8 mg/dL (9-20); Calcium 8.1 mg/dL (8.4-10.2); Hemolysis Index 3
--- NOTE | 2020-09-15 11:29 | Consultation ---
History of Present Illness Consult date: 09/15/20 Consult reason: hypotension History of present illness: This is a 50-year old M with a history of hypertension. Two weeks ago he was hospitalized with new onset atrial fibrillation. An echocardiogram shows a preserved left ventricular systolic function, ejection fraction 50-55%. Patient reverted to sinus rhythm then discharged home on Eliquis 5 mg twice daily for oral anticoagulation and high dose metoprolol 100 mg twice daily for suppression of paroxysmal . Patient returns with excessive bleeding form right lower extremity varicose vein. On presentation, he was noted with borderline low blood pressure of 97/67. Patient complained of dizziness. Denies chest pain, palpitations, and unusual shortness of breath. Initial labs done in the emergency department shows a hematocrit of 29.1, down from 37 during his hospital stay 2 weeks ago. An ECG done is marked sinus bradycardia, rate 42. His metoprolol and eliquis therapy was discontinued. Currently, he is stable sinus rhythm, rate 85 on telemetry. Cardiology consultation has been requested. Past History Past Medical History: atrial fib, hypertension Past Surgical History: Other (Testicular surgery) Social history: single. denies: smoking, alcohol abuse, prescription drug abuse Family history: hypertension Medications and Allergies Allergies Allergy/AdvReac Type Severity Reaction Status Date / Time lisinopril Allergy Unknown Verified 08/29/20 20:43 Home Medications Medication Instructions Recorded Confirmed Last Taken Type Apixaban [Eliquis] 5 mg PO Q12HR #60 tablet 09/02/20 09/15/20 Unknown Rx Losartan [Cozaar] 25 mg PO QDAY #30 tablet 09/02/20 09/15/20 Unknown Rx Metoprolol [Lopressor TAB] 100 mg PO BID #60 tablet 09/02/20 09/15/20 Unknown Rx Active Meds: Active Medications Acetaminophen (Acetaminophen 325 Mg Tab) 650 mg PO Q4H PRN PRN Reason: Pain MILD(1-3)/Fever >100.5/RUSSELL Metoprolol Tartrate (Metoprolol Tartrate 25 Mg Tab) 25 mg PO BID [facility] Ondansetron HCl (Ondansetron 4 Mg/2 Ml Inj) 4 mg IV Q8H PRN PRN Reason: Nausea And Vomiting Sodium Chloride (Sodium Chloride 0.9% 10 Ml Flush Syringe) 10 ml IV BID [facility] Last Admin: 09/15/20 00:44 Dose: Not Given Documented by: Sodium Chloride (Sodium Chloride 0.9% 10 Ml Flush Syringe) 10 ml IV PRN PRN PRN Reason: LINE FLUSH Review of Systems Cardiovascular: other (dizziness), no chest pain, no palpitations, no rapid/irregular heart beat, no edema Physical Examination Vital Signs Temp Pulse Resp BP Pulse Ox 97.8 F 50 L 12 97/67 100 09/14/20 16:05 09/14/20 16:05 09/14/20 16:05 09/14/20 16:05 09/14/20 16:05 General appearance: no acute distress HEENT: Positive: PERRL Neck: Positive: trachea midline Cardiac: Positive: Reg Rate and Rhythm Results 09/14/20 16:51 09/15/20 10:42 Cardiac Enzymes 09/14/20 Range/Units 16:51 AST 12 (5-40) units/L Coagulation 09/14/20 Range/Units 16:51 PT 15.0 H (12.2-14.9) Sec. INR 1.20 H (0.87-1.13) APTT 25.2 (24.2-36.6) Sec. CBC 09/14/20 Range/Units 16:51 WBC 8.2 (4.5-11.0) K/mm3 RBC 3.22 L (3.65-5.03) M/mm3 Hgb 10.1 L (11.8-15.2) gm/dl Hct 29.1 L (35.5-45.6) % Plt Count 288 (140-440) K/mm3 Lymph # (Auto) 1.7 (1.2-5.4) K/mm3 [place] # (Auto) 0.6 (0.0-0.8) K/mm3 Eos # (Auto) 0.3 (0.0-0.4) K/mm3 Baso # (Auto) 0.1 (0.0-0.1) K/mm3 Comprehensive Metabolic Panel 09/14/20 09/15/20 Range/Units 16:51 10:42 Sodium 138 140 (137-145) mmol/L Potassium 4.2 3.6 (3.6-5.0) mmol/L Chloride 106.9 106.6 (98-107) mmol/L Carbon Dioxide 21 L 25 (22-30) mmol/L BUN 13 8 L (9-20) mg/dL Creatinine 0.9 0.8 (0.8-1.3) mg/dL Glucose 150 H 151 H (75-100) mg/dL Calcium 8.1 L 8.1 L (8.4-10.2) mg/dL AST 12 (5-40) units/L ALT 15 (7-56) units/L Alkaline Phosphatase 66 (35-129) units/L Total Protein 5.0 L (6.3-8.2) g/dL Albumin 3.2 L (3.9-5) g/dL Assessment and Plan Marked sinus bradycardia, rate 42 on presentation Anemia Hx of paroxysmal atrial fibrillation Hypertension
[2020-09-15] MEDS ORDERED: METOPROLOL TARTRATE 25 MG TAB PO SCH (12:00)
--- NOTE | 2020-09-15 12:08 | Electrocardiograph Report ---
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
[2020-09-15 16:52] VITALS: BP 100/67
--- NOTE | 2020-09-15 17:58 | Discharge Summary ---
Providers - Providers Date of Admission: 09/14/20 18:20 Date of discharge: 09/15/20 Attending physician: CARLYLE FLORES 09/14/20 21:47 Consult to Physician [CONS] Stat Comment: Consulting Provider: AWILDA SIMMONS Physician Instructions: Reason For Exam: Hypotension/syncope Primary care physician: POLYMERIZATION HELPER Hospitalization Condition: Critical Hospital course: 50 YO Male with HTN, Atrial Fib on Therapeutic Anticoagulation, OA, Nicotine Dependence presents to ED for evaluation. Pt reports " I passed out after started bleeding". Patient states that he experienced dizziness after he noticed blood oozing from his varicose vein on his right leg. Patient states that he was unable to control the blood loss and subsequently felt dizzy. Patient states that he laid on the ground with mild improvement in symptoms. EMS was notified and upon arrival the patient was found to be in distress and subsequently transported to [facility] for further care and evaluation. The patient was seen and evaluated in the emergency department. All lab and imaging studies reviewed. Patient found to have symptomatic bradycardia as well as blood loss anemia. Patient placed in observation status and admitted to medical floor due to increased risk of worsening symptoms. Patient denies fever, chills, chest pain, palpitation, productive cough, skin rash, recent ill contacts, trauma, or known exposure to COVID-19. Prior admission on 08/31/2019 reviewed. All medication listed at time of admission has been reconciled. Assessment and Plan - Patient Problems (1) Symptomatic bradycardia Current Visit: Yes Status: Acute Plan to address problem: Resolved Hydrated 7 today normal sinus rhythm (2) Atrial fibrillation Current Visit: Yes Status: Acute Qualifiers: Atrial fibrillation type: paroxysmal Qualified Code(s): I48.0 - Paroxysmal atrial fibrillation Plan to address problem: Paroxysmal now in normal sinus rhythm Cardiology consult appreciated Eliquis to be stopped because of the variceal bleeding Patient to be discharged on aspirin 162 mg once a day (3) Nicotine dependence Current Visit: Yes Status: Acute Qualifiers: Nicotine product type: cigarettes Substance use status: in withdrawal Qualified Code(s): F17.213 - Nicotine dependence, cigarettes, with withdrawal Plan to address problem: Supportive care, behavior change counseling, +15 minutes. Smoking cessation counseling (4) Bleeding from varicose veins of right lower extremity Current Visit: Yes Status: Acute Plan to address problem: Pressure dressing applied Patient to follow-up with [facility] [place] tomorrow morning at 830. Appointment made with Dr. Berumen and appointment card and FMLA forms given to the patient. 5 )Blood loss anemia Hemoglobin at 10 Patient should be able to recuperate and come to normal levels [id number] iron tablets Disposition: DC-01 TO HOME OR SELFCARE Final Discharge Diagnosis (Prints w/discharge instructions): Blood loss anemia. Syncope. Bradycardia. Bleeding from varicose vein. Hypotension Time spent for discharge: 35 minutes - Discharge Diagnoses (1) Anemia Status: Acute Qualifiers: Anemia type: unspecified type Qualified Code(s): D64.9 - Anemia, unspecified (2) Atrial fibrillation Status: Acute Qualifiers: Atrial fibrillation type: paroxysmal Qualified Code(s): I48.0 - Paroxysmal atrial fibrillation (3) Bleeding from varicose veins of right lower extremity Status: Acute (4) DVT prophylaxis Status: Acute (5) Hypotension Status: Acute Qualifiers: Hypotension type: unspecified hypotension type Qualified Code(s): I95.9 - Hypotension, unspecified (6) Nicotine dependence Status: Acute Qualifiers: Nicotine product type: cigarettes Substance use status: in withdrawal Qualified Code(s): F17.213 - Nicotine dependence, cigarettes, with withdrawal Core Measure Documentation - Palliative Care Palliative Care/ Comfort Measures: Not Applicable - Core Measures Any of the following diagnoses?: none Exam - Constitutional Vitals: Temp Pulse Resp BP Pulse Ox 98.5 F 66 18 100/67 97 09/15/20 16:17 09/15/20 16:17 09/15/20 16:17 09/15/20 16:17 09/15/20 16:17 General appearance: Present: no acute distress, well-nourished - EENT Eyes: Present: PERRL ENT: hearing intact, clear oral mucosa - Neck Neck: Present: supple, normal ROM - Respiratory Respiratory effort: normal Respiratory: bilateral: CTA - Cardiovascular Heart rate: 73 Rhythm: regular Heart Sounds: Present: S1 & S2. Absent: rub, click - Extremities Extremities: no ischemia, pulses intact, pulses symmetrical, No edema Peripheral Pulses: within normal limits - Abdominal General gastrointestinal: Present: soft, non-tender, non-distended, normal bowel sounds Male genitourinary: Present: normal - Rectal Rectal Exam: deferred - Integumentary Integumentary: Present: clear, warm, dry - Musculoskeletal Musculoskeletal: gait normal, strength equal bilaterally - Psychiatric Psychiatric: appropriate mood/affect, intact judgment & insight - Neurologic Neurologic: CNII-XII intact, moves all extremities - Allied Health Allied health notes reviewed: nursing, case management Plan Activity: no restrictions Diet: low salt Care Plan Goals: Stop Eliquis Continue aspirin 81 mg 2 tablets a day Continue other home medications Follow up with: PRIMARY CARE, [Primary Care Provider] - 7 Days ELEAZAR BERUMEN MD [Staff Physician] - 7 Days AWILDA SIMMONS MD [Staff Physician] - 7 Days
== END 2020-09-15 19:29 | disposition home or self-care (01) ==
LOC: ED 16:02 → 4A 18:20
PROVIDERS: ADMIT Internal Medicine; ATTEND Internal Medicine
DX: I48.91 Unspecified atrial fibrillation (principal); R00.1 Bradycardia, unspecified; I83.891 Varicose veins of right lower extremity with other complications; R55 Syncope and collapse; I10 Essential (primary) hypertension; I95.9 Hypotension, unspecified; D50.0 Iron deficiency anemia secondary to blood loss (chronic); M19.90 Unspecified osteoarthritis, unspecified site; F17.210 Nicotine dependence, cigarettes, uncomplicated; Z79.899 Other long term (current) drug therapy; Z98.890 Other specified postprocedural states
CPT/HCPCS: 36415; 70450; 80048; 80053; 83735; 84100; 85025; 85610; 85730; 86850; 86900; 86901; 93005; 96360; 96361; 99291; G0378; J7030

== ENCOUNTER 2020-09-18 01:58 | Emergency (ER) | payer BC ==
--- NOTE | 2020-09-18 06:50 | Emergency Department Report ---
Blank Doc - Documentation Documentation: Start this document in error please disregard
--- NOTE | 2020-09-18 06:55 | Emergency Department Report ---
ED Laceration HPI - HPI Chief Complaint: Wound/Laceration Stated Complaint: LT HAND CUT/INJURY Time Seen by Provider: 09/18/20 05:43 Occurred When: Today Severity: mild Tetanus Status: Up to Date Laceration Symptoms: Yes Pain, No Foreign Body Sensation, No Numbness, No W eakness Other History: 50-year-old male was trying to strike a fly which is on his ceramic stove top when striking the floor his knuckles hit the stove top causing the glass to break resulting in laceration to the dorsal aspect proximally located fifth phalanges as well as the lateral aspect of the proximal interphalangeal joint on on the arm on the dorsal side of the third phalanges. These lesions were what 1 cm ganglion and bleeding is controlled there is some pain with palpation. Stated he was started on blood thinners earlier this month due to atrial fibrillation diagnosis ED Review of Systems ROS: Stated complaint: LT HAND CUT/INJURY Other details as noted in HPI Comment: All other systems reviewed and negative ED Past Medical Hx - Past Medical History Previous Medical History?: Yes Hx Hypertension: Yes Hx Diabetes: No Hx Arthritis: Yes Additional medical history: varicose veins - Surgical History Past Surgical History?: Yes Additional Surgical History: testicle surgery(child)- - Social History Smoking Status: Never Smoker Substance Use Type: None - Medications Home Medications: Home Medications Medication Instructions Recorded Confirmed Last Taken Type Losartan [Cozaar] 25 mg PO QDAY #30 tablet 09/02/20 09/15/20 Unknown Rx Metoprolol [Lopressor TAB] 25 mg PO BID #60 tablet 09/15/20 Unknown Rx Chlorhexidine Gluconate [Hibiclens] 10 ml TP BID #240 liquid 09/18/20 Unknown Rx traMADoL [Ultram] 50 mg PO Q6HR PRN #20 tablet 09/18/20 Unknown Rx Laceration Physical Exam - Exam General: Vital signs noted. No distress. Alert and acting appropriately. Full Body Front + Back: 1 - Laceration linear 1 cm at the base of the fifth phalange 2 - Laceration was in Laceration Exam: Yes Normal Distal CMS, No Foreign Body, No Exposed Tendon, Vessel, or Nerve, No Tendon Injury ED Course Vital Signs 09/18/20 03:52 Temperature 98.4 F Pulse Rate 79 Respiratory 18 Rate Blood Pressure 104/62 O2 Sat by Pulse 99 Oximetry - Procedure Description Procedures done: Laceration to the fifth digit was prepped and sterile fashion anesthesia with 1% lidocaine with no epinephrine x1 cc two 4-0 Prolene were placed simple noted fashion no complication hemostasis achieved in his mid blood loss less than 2 cc. Laceration #2. The proximal phalangeal joint of the third phalanges laterally located placed simple noted fashion times one 4-0 Prolene with no complication hemostasis achieved. Critical care attestation.: If time is entered above; I have spent that time in minutes in the direct care of this critically ill patient, excluding procedure time. ED Disposition Clinical Impression: Finger laceration Disposition: DC-01 TO HOME OR SELFCARE Is pt being admited?: No Does the pt Need Aspirin: No Condition: Stable Instructions: Laceration Care, Adult, Sutured Wound Care, Laceration Care, Adult, Tell-ne-Swil Additional Instructions: Please follow-up with in 7 days for to be evaluated for possible suture removal with your primary care doctor or the listed provider Prescriptions: Chlorhexidine Gluconate [Hibiclens] 10 ml TP BID #240 liquid traMADoL [Ultram] 50 mg PO Q6HR PRN #20 tablet PRN Reason: Pain Referrals: HONORIO HERRERA MD [Staff Physician] - 3-5 Days PRIMARY CARE, [Primary Care Provider] - 3-5 Days
[2020-09-18 07:44] VITALS: BP 122/82
== END 2020-09-18 07:30 | disposition home or self-care (01) ==
LOC: ED 01:58
DX: S61.217A Laceration without foreign body of left little finger without damage to nail, initial encounter (principal); I10 Essential (primary) hypertension; M19.90 Unspecified osteoarthritis, unspecified site; Z98.890 Other specified postprocedural states; Z79.899 Other long term (current) drug therapy; Z88.8 Allergy status to other drugs, medicaments and biological substances; W25.XXXA Contact with sharp glass, initial encounter; Y93.89 Activity, other specified; Y92.89 Other specified places as the place of occurrence of the external cause; Y99.8 Other external cause status